=== PATIENT | female | born 1940 | race African-American/Black ===

== ENCOUNTER 2019-09-13 06:27 | Inpatient (IN) | payer OTHER ==
[~2019-09-13] VITALS: Ht 167.6 cm; Wt 66.7 kg
[~2019-09-13 06:27] MED LIST: ASPI-404 PO; ATOR20TA50 PO; CEPH250C PO; CLOP75TA28 PO; FURO1TAB33 PO; METO25TA5 PO
[2019-09-13 07:28] LABS: Basophils # (auto) 0.1 10 ^3/uL (0-0.2); Eosinophils # (auto) 0 10 ^3/uL (0-0.8); Lymphocytes # (auto) 2.6 10 ^3/uL (0.4-5.4); Red Blood Cells 4.27 10^6/uL (4.0-5.20)
[2019-09-13] MEDS ORDERED: SODIUM CHLORIDE 0.9% 1,000 ML IV ONE (07:28)
[2019-09-13 07:29] LABS: Basophils % (auto) 0.5 % (0.0-2.0); Hematocrit 35.8 % (36.0-46.0); Hemoglobin 11.3 g/dL (12.2-16.2); Lymphocytes % (auto) 23.6 % (10.0-50.0); Mean Corpuscular Hemoglobin 26.4 pg (28.0-32.0); Mean Corpuscular Hgb Conc. 31.5 g/dL (32.0-36.0); Mean Corpuscular Volume 83.9 fL (80.0-100.0); Monocytes # (auto) 0.6 10 ^3/uL (0-1.3); Monocytes % (auto) 5.6 % (0.0-12.0); Neutrophils # (auto) 7.8 10 ^3/uL (1.6-8.6); Neutrophils % (auto) 70.3 % (37.0-80.0); Nucleated Red Blood Cells % 0.1 %; Platelet Count (auto) 247 10^3/uL (140-450); Red Cell Distribution Width 16.2 % (11.8-14.3); White Blood Cell 11.1 10^3/uL (4.4-10.8)
[2019-09-13 07:43] LABS: Albumin 3.5 g/dL (3.4-5.0); BUN/Creatinine Ratio 19.1; Calcium 8.3 mg/dL (8.5-10.1); INR 1.09 (0.9-1.15); Partial Thromboplastin Time 26.3 sec (23.64-32.05); Potassium 3.3 mmol/L (3.5-5.1)
[2019-09-13 07:57] LABS: Bilirubin, Total 0.3 mg/dL (0.2-1.0); Total Protein 7.9 g/dL (6.4-8.2)
[2019-09-13] MEDS ORDERED: SPIRONOLACTONE 25 MG TAB PO ONE (08:30)
[2019-09-13] MEDS ORDERED: FUROSEMIDE 40 MG/4 ML VIAL IV ONE (08:30)
[2019-09-13] MEDS ORDERED: POTASSIUM EFFERVESENT TAB 25 MEQ PO ONE (08:45)
[2019-09-13 09:53] LABS: Urine Bacteria NONE SEEN /hpf (None Seen); Urine Blood 1+ /uL (Negative); Urine Specific Gravity 1.008 (1.001-1.035); Urine WBC 1 /hpf (0 - 5)
[2019-09-13] MEDS ORDERED: ACETAMINOPHEN 325 MG TAB PO PRN (10:30)
[2019-09-13] MEDS ORDERED: hydrALAZINE HCL 20 MG/ML VL IV PRN (10:30)
[2019-09-13] MEDS ORDERED: CLOPIDOGREL BISULFATE 75 MG TAB PO ONE (10:30)
[2019-09-13] MEDS ORDERED: NITROGLYCERIN 0.4 MG SL TAB SL PRN (10:30)
[2019-09-13] MEDS ORDERED: PROMETHAZINE HCL 25 MG/ML 1ML IV PRN (10:30)
[2019-09-13] MEDS ORDERED: POTASSIUM CHLORIDE 20 MEQ, LIDOCAINE 1% (LOCAL ANESTH.) 2 ML in SODIUM CHL 0.9% 100 ML IV ONE (10:30)
[2019-09-13] MEDS ORDERED: HYDROcodone-ACET 5/325MG TAB PO PRN (10:30)
[2019-09-13] MEDS ORDERED: METOPROLOL TARTRATE 25 MG TAB PO ONE (10:30)
[2019-09-13] MEDS ORDERED: ASPirin-EC 81 mg tab PO ONE (10:30)
[2019-09-13] MEDS ORDERED: ALBUTEROL SULF HFA 90MCG INH 200DOSE IN PRN (10:45)
[2019-09-13] MEDS: HEPARIN SODIUM (PORCINE) 5000 UNITS/ML 1ML VIAL SC SCH ×2 (14:53→22:37)
[2019-09-13 18:29] VITALS: BP 146/70
[2019-09-13 19:40] VITALS: BP 146/63
[2019-09-13 22:00] VITALS: BP 148/64
[2019-09-13] MEDS: POTASSIUM CHL 20 Meq TABLET PO SCH (22:36)
[2019-09-13] MEDS: METOPROLOL TARTRATE 25 MG TAB PO SCH (22:37)
[2019-09-14] MEDS: HEPARIN SODIUM (PORCINE) 5000 UNITS/ML 1ML VIAL SC SCH ×2 (05:32→15:38)
[2019-09-14 05:46] VITALS: BP 137/59
[2019-09-14 05:58] LABS: Basophils # (auto) 0.1 10 ^3/uL (0-0.2); Eosinophils # (auto) 0 10 ^3/uL (0-0.8); Lymphocytes % (auto) 35.8 % (10.0-50.0); Monocytes # (auto) 0.6 10 ^3/uL (0-1.3); Nucleated Red Blood Cells % 0.1 %
[2019-09-14 06:01] LABS: Basophils % (auto) 0.6 % (0.0-2.0); Hematocrit 36.5 % (36.0-46.0); Hemoglobin 11.7 g/dL (12.2-16.2); Mean Corpuscular Hemoglobin 26.6 pg (28.0-32.0); Mean Corpuscular Volume 83.1 fL (80.0-100.0); Monocytes % (auto) 7.7 % (0.0-12.0); Neutrophils # (auto) 4.7 10 ^3/uL (1.6-8.6); Neutrophils % (auto) 55.9 % (37.0-80.0); Platelet Count (auto) 243 10^3/uL (140-450); Red Blood Cells 4.39 10^6/uL (4.0-5.20); Red Cell Distribution Width 16.1 % (11.8-14.3); White Blood Cell 8.4 10^3/uL (4.4-10.8)
[2019-09-14 06:21] LABS: Albumin 3.4 g/dL (3.4-5.0); Calcium 8.6 mg/dL (8.5-10.1)
[2019-09-14 06:27] LABS: BUN/Creatinine Ratio 23.2; Bilirubin, Total 0.6 mg/dL (0.2-1.0); Total Protein 7.5 g/dL (6.4-8.2)
[2019-09-14] MEDS: FUROSEMIDE 20 MG/2 ML VIAL IV SCH ×2 (06:36→17:42)
[2019-09-14 08:44] VITALS: BP 142/52
[2019-09-14] MEDS: POTASSIUM CHL 20 Meq TABLET PO SCH (09:54)
[2019-09-14] MEDS: METOPROLOL TARTRATE 25 MG TAB PO SCH (09:56)
[2019-09-14] MEDS ORDERED: ATORVASTATIN 20 MG TAB PO SCH (10:00)
[2019-09-14] MEDS ORDERED: ASPirin-EC 81 mg tab PO SCH (10:00)
[2019-09-14] MEDS ORDERED: CLOPIDOGREL BISULFATE 75 MG TAB PO SCH ×2 (10:00)
[2019-09-14] MEDS ORDERED: AZITHROMYCIN 500MG/ 250ML 250 ML IV SCH (10:00)
[2019-09-14] MEDS ORDERED: FURO1TAB33 PO (12:55)
[2019-09-14] MEDS ORDERED: POTA-220 PO (12:55)
[2019-09-14 13:00] VITALS: BP 131/58
[2019-09-14 17:00] VITALS: BP 137/58
== END 2019-09-14 17:45 | disposition home or self-care (01) | DRG 280 ==
LOC: EDBD 06:27 → ER 06:27 → TELE 06:28 → TELE-EAST 17:38
PROVIDERS: ADMIT Internal Medicine; ATTEND Internal Medicine
DX: I21.4 Non-ST elevation (NSTEMI) myocardial infarction (principal); J96.01 Acute respiratory failure with hypoxia; J18.9 Pneumonia, unspecified organism; I50.23 Acute on chronic systolic (congestive) heart failure; I44.7 Left bundle-branch block, unspecified; E87.6 Hypokalemia; I35.0 Nonrheumatic aortic (valve) stenosis; E78.5 Hyperlipidemia, unspecified; I11.0 Hypertensive heart disease with heart failure; Z79.02 Long term (current) use of antithrombotics/antiplatelets; Z87.891 Personal history of nicotine dependence; Z79.899 Other long term (current) drug therapy; Z03.818 Encounter for observation for suspected exposure to other biological agents ruled out
CPT/HCPCS: 36415; 51702; 71045; 80053; 81001; 83735; 83880; 84443; 84484; 85025; 85610; 85730; 87070; 87804; 87880; 93005; 96361; 96365; G0378; J2001

== ENCOUNTER 2019-10-19 02:02 | Inpatient (IN) | payer OTHER ==
[~2019-10-19] VITALS: Ht 167.6 cm; Wt 64.6 kg
[~2019-10-19 02:02] MED LIST changes: -ASPI-404 PO; +ASPI-543 PO; -CEPH250C PO; +POTA-220 PO
[2019-10-19] MEDS ORDERED: HYDROcodone-ACET 5/325MG TAB PO ONE (04:00)
[2019-10-19] MEDS ORDERED: FUROSEMIDE 20 MG/2 ML VIAL IV ONE (07:00)
[2019-10-19 07:17] LABS: Eosinophils # (auto) 0 10 ^3/uL (0-0.8); Hemoglobin 10.9 g/dL (12.2-16.2); Monocytes # (auto) 0.8 10 ^3/uL (0-1.3); Neutrophils # (auto) 8.2 10 ^3/uL (1.6-8.6); Nucleated Red Blood Cells % 0.1 %; Red Blood Cells 4.16 10^6/uL (4.0-5.20)
[2019-10-19 07:18] LABS: Basophils # (auto) 0.1 10 ^3/uL (0-0.2); Basophils % (auto) 0.5 % (0.0-2.0); Hematocrit 34.7 % (36.0-46.0); Lymphocytes # (auto) 2.1 10 ^3/uL (0.4-5.4); Lymphocytes % (auto) 18.8 % (10.0-50.0); Mean Corpuscular Hemoglobin 26.1 pg (28.0-32.0); Mean Corpuscular Hgb Conc. 31.3 g/dL (32.0-36.0); Mean Corpuscular Volume 83.3 fL (80.0-100.0); Monocytes % (auto) 7.2 % (0.0-12.0); Neutrophils % (auto) 73.5 % (37.0-80.0); Platelet Count (auto) 221 10^3/uL (140-450); White Blood Cell 11.1 10^3/uL (4.4-10.8)
[2019-10-19 07:30] LABS: INR 1.13 (0.9-1.15); Partial Thromboplastin Time 29.4 sec (23.64-32.05)
[2019-10-19 07:34] LABS: Albumin 3.6 g/dL (3.4-5.0); Calcium 8.8 mg/dL (8.5-10.1); Magnesium 1.8 mg/dL (1.6-2.6); Potassium 3.4 mmol/L (3.5-5.1)
[2019-10-19 07:40] LABS: BUN/Creatinine Ratio 26.8; Bilirubin, Total 0.3 mg/dL (0.2-1.0); Total Protein 7.4 g/dL (6.4-8.2)
[2019-10-19] MEDS ORDERED: ASPirin 81 mg TAB PO ONE (08:15)
[2019-10-19 09:12] LABS: Urine Bacteria FEW /hpf (None Seen); Urine Blood Negative /uL (Negative); Urine Hyaline Cast FEW /lpf (0 - 2); Urine Specific Gravity 1.005 (1.001-1.035); Urine WBC 1 /hpf (0 - 5)
[2019-10-19] MEDS ORDERED: ONDANSETRON HCL 4 MG/2 ML VIAL IV PRN (09:15)
[2019-10-19] MEDS ORDERED: NITROGLYCERIN 0.4 MG SL TAB SL PRN (09:15)
[2019-10-19] MEDS ORDERED: POTASSIUM CHL 20 Meq TABLET PO ONE (09:15)
[2019-10-19] MEDS ORDERED: MORPHINE SULF INJ 2 MG/ML SYRINGE 1ML IV PRN ×2 (09:15)
[2019-10-19] MEDS ORDERED: ACETAMINOPHEN 500 MG TAB PO PRN (09:15)
[2019-10-19] MEDS ORDERED: HYDROcodone-ACET 5/325MG TAB PO PRN (09:15)
[2019-10-19] MEDS ORDERED: ENOXAPARIN SOD 40 MG/0.4 ML SYRINGE SC SCH (10:00)
[2019-10-19] MEDS ORDERED: IOHEXOL 350 MG/ML 100ML IJ ONE (10:07)
[2019-10-19] MEDS: FUROSEMIDE 40 MG/4 ML VIAL IV SCH (18:36)
--- NOTE | 2019-10-19 18:45 | NUR ---
Report Received report from BENCH ASSEMBLER ELECTRICALAllie.
--- NOTE | 2019-10-19 18:50 | NUR ---
Patient Arrived to Unit Patient Arrived to Unit from ER. No signs of distress at this time. Respirations even and unlabored, denies shortness of breath at this time. Patient oriented to room, safety precautions in place. Will endorse admission to NOC RN.
--- NOTE | 2019-10-19 19:30 | NUR ---
RECEIVED PATIENT FROM DAY SHIFT RN. PATIENT RESTING IN BED. NO S/S OF DISTRESS NOTED. DENIED PAIN FOR NOW. POC INSTRUCTED AND ENCOURAGED PATIENT TO CALL FOR SALES AGENT PEST CONTROL SERVICE IF NEEDED. BED IN LOWEST POSITION WITH SIDE RAILS UP X 2. CALL DUNBAR WITHIN REACH. ALARM ON. CONTINUE TO MONITOR FOR CHANGES Q1H AND PRN.
--- NOTE | 2019-10-19 20:43 | NUR ---
Called/paged Dr. CARLOS called re:PATIENT'S CRITICAL LAB TROP 05.20 . Waiting for call back. Continue care. Addendum: 10/19/19 at 2044 by Eliceo Cortez RN MESSAGE LEFT TO MD GARCIA
--- NOTE | 2019-10-19 21:05 | NUR ---
returned call Dr. GARCIA returned call, updated on patient status and reason for call, orders received AND READ BACK. WILL CARRY IT OUT. Continue care.
[2019-10-19] MEDS ORDERED: ENOXAPARIN SOD 80 MG/0.8ML SYRINGE SC SCH (22:00)
[2019-10-19] MEDS ORDERED: ATORVASTATIN 20 MG TAB PO SCH (22:00)
[2019-10-19] MEDS: ENOXAPARIN SOD 80 MG/0.8ML SYRINGE SC SCH (22:09)
[2019-10-19] MEDS: METOPROLOL TARTRATE 25 MG TAB PO SCH (22:09)
--- NOTE | 2019-10-19 22:10 | NUR ---
PATIENT'S TEMP 100.8, MEDICATED PATIENT ORDERED. CONTINUE TO MONITOR.
[2019-10-19 22:12] VITALS: BP 133/53
--- NOTE | 2019-10-19 22:54 | NUR ---
MD Called/paged Dr. GARCIA called re: PATIENT HAS FEVER 100.8, WITH COUGH, AND PATIENT'S CTA RESULT "diffuse nodular and ground glass opacity towards the lungs with moderate bilateral pleural effusion" PER PROTOCOL. AND MD CARLOS MENTIONED IT IN HIS NOTES. MD GARCIA WILL NOT CHANGE ANY ORDER FOR NOW. WILL PASS IT TO DAY SHIFT RN TO DAY MD. Continue care.
[2019-10-20 02:00] VITALS: BP 128/55
--- NOTE | 2019-10-20 02:52 | NUR ---
CRITICAL LAB TROP 1.72, AWARE OF CRITICAL TROP 1.29 AT THE BEGINNING OF THE SHIFT, AND NEW ORDERS RECEIVED. WILL PASS IT TO DAY SHIFT RN TO MD. CONTINUE TO MONITOR.
[2019-10-20 05:00] VITALS: BP 129/51
--- NOTE | 2019-10-20 05:11 | NUR ---
PATIENT SLEEPING. NO S/S OF DISTRESS NOTED. CONTINUE CARE.
[2019-10-20 05:21] LABS: Basophils # (auto) 0.1 10 ^3/uL (0-0.2); Basophils % (auto) 0.5 % (0.0-2.0); Eosinophils # (auto) 0 10 ^3/uL (0-0.8); Hematocrit 34.7 % (36.0-46.0); Hemoglobin 10.9 g/dL (12.2-16.2); Lymphocytes % (auto) 25.2 % (10.0-50.0); Mean Corpuscular Hemoglobin 26.1 pg (28.0-32.0); Mean Corpuscular Hgb Conc. 31.6 g/dL (32.0-36.0); Mean Corpuscular Volume 82.8 fL (80.0-100.0); Monocytes # (auto) 0.6 10 ^3/uL (0-1.3); Monocytes % (auto) 5.4 % (0.0-12.0); Neutrophils # (auto) 8.2 10 ^3/uL (1.6-8.6); Neutrophils % (auto) 68.9 % (37.0-80.0); Platelet Count (auto) 222 10^3/uL (140-450); Red Blood Cells 4.19 10^6/uL (4.0-5.20); Red Cell Distribution Width 15.5 % (11.8-14.3); White Blood Cell 11.9 10^3/uL (4.4-10.8)
[2019-10-20 05:39] LABS: Potassium 3.3 mmol/L (3.5-5.1)
[2019-10-20 05:45] LABS: Albumin 3.2 g/dL (3.4-5.0); Bilirubin, Total 0.6 mg/dL (0.2-1.0); Calcium 8.6 mg/dL (8.5-10.1); Magnesium 1.8 mg/dL (1.6-2.6); Total Protein 6.7 g/dL (6.4-8.2)
[2019-10-20] MEDS: FUROSEMIDE 40 MG/4 ML VIAL IV SCH (06:11)
[2019-10-20 07:30] VITALS: BP 128/48
--- NOTE | 2019-10-20 07:30 | NUR ---
Opening Note Assumed patient care from NOC RN. Patient currently resting in bed with eyes closed, laying on left side. Respirations are even and unlabored on 3L nasal cannula, no signs of distress at this time. Safety precautions are in place, will continue to monitor.
[2019-10-20 08:51] VITALS: BP 128/48
[2019-10-20] MEDS ORDERED: ATORVASTATIN 20 MG TAB PO SCH (10:00)
[2019-10-20] MEDS ORDERED: CLOPIDOGREL BISULFATE 75 MG TAB PO SCH (10:00)
[2019-10-20] MEDS ORDERED: ASPirin-EC 81 mg tab PO SCH (10:00)
[2019-10-20] MEDS ORDERED: FUROSEMIDE 20 MG TAB PO SCH (10:00)
[2019-10-20] MEDS ORDERED: POTASSIUM CHL 20 Meq TABLET PO SCH (10:00)
--- NOTE | 2019-10-20 10:00 | NUR ---
Patient Rounds Patient currently sitting up in bed, no signs of distress at this time. Respirations even and unlabored on room air, denies shortness of breath at this time. Patient is AOx4. Safety precautions in place, will continue to monitor.
[2019-10-20] MEDS: ENOXAPARIN SOD 80 MG/0.8ML SYRINGE SC SCH (10:18)
[2019-10-20] MEDS: METOPROLOL TARTRATE 25 MG TAB PO SCH (10:19)
--- NOTE | 2019-10-20 10:29 | NUR ---
Ambulated Patient ambulated independently around unit with physical therapy. Addendum: 10/20/19 at 1030 by DEMARIO LILLY RN RN Patient tolerated well, no signs of distress
--- NOTE | 2019-10-20 11:00 | NUR ---
at Bedside Dr. Pena at bedside discussing plan of care with patient.
[2019-10-20 12:42] VITALS: BP 125/42
[2019-10-20 15:26] VITALS: BP 125/42
--- NOTE | 2019-10-20 15:36 | NUR ---
Assessment Patient is an 79-year-old female. Assessment was completed with patient daughter Staci Ph:[phone]. Per Staci prior to admission patient lived home with her and functioned independently. Per Staci patient does not have any medical equipment now. Per Staci patient can care for her own ADLs. Per Staci patient will return home to her prior living arrangements post discharge and she will transport patient home. Advised Staci there is a social service consult for home health safety evaluation. Informed Staci clinical information will be faxed to contracted home health agency with health plan. Informed Staci she has the right to participate in all discharge planning. Staci verbalized understanding and agreed to discharge plan. Faxed clinical information to [facility] and [facility] [facility]. Per Anjelica with [employer] [facility] [phone] patient has been accepted and will be seen within 24-48hrs upon d/c day. Informed weight yardage checkerDEUCE Aquino. Addendum: 10/20/19 at 1537 by JO RASHID Amended: Links added.
--- NOTE | 2019-10-20 16:58 | NUR ---
Discharge Discharge instructions given as ordered. Encourage to follow up with PMD as instructed. All questions and concerns addressed. Patient verbalized understanding. Medication reconciliation form completed and copy given to patient. Home medications held in Pharmacy returned to patient. IV removed with catheter intact, pressure dressing applied. Telemetry unit returned to ICU. Patient taken to vehicle via wheelchair with all personal belongings, accompanied by staff. No distress noted at time of departure.
== END 2019-10-20 16:58 | disposition home health service (06) | DRG 282 ==
LOC: EDBD 02:02 → ER 02:02 → TELE 02:03 → TELE-WESTW 18:50
PROVIDERS: ADMIT Internal Medicine; ATTEND Internal Medicine
DX: I11.0 Hypertensive heart disease with heart failure (principal); I21.4 Non-ST elevation (NSTEMI) myocardial infarction; I50.23 Acute on chronic systolic (congestive) heart failure; I42.9 Cardiomyopathy, unspecified; I35.0 Nonrheumatic aortic (valve) stenosis; E78.5 Hyperlipidemia, unspecified; I25.10 Atherosclerotic heart disease of native coronary artery without angina pectoris; Z79.82 Long term (current) use of aspirin; Z79.899 Other long term (current) drug therapy; Z87.891 Personal history of nicotine dependence; Z95.2 Presence of prosthetic heart valve; Z03.818 Encounter for observation for suspected exposure to other biological agents ruled out
CPT/HCPCS: 36415; 71045; 71275; 80053; 81001; 83735; 83880; 84484; 85025; 85379; 85610; 85730; 93005; 93306; 96372; 96374; 96376; G0378

== ENCOUNTER 2021-01-04 12:27 | Inpatient (IN) | payer OTHER, MEDICAID ==
[2021-01-04] VITALS (13 sets, daily range): BP systolic 111–180; BP diastolic 43–115
[~2021-01-04] VITALS: Ht 154.9 cm; Wt 58.8 kg
[2021-01-04 14:02] LABS: Albumin 3.9 g/dL (3.4-5.0); Calcium 9.1 mg/dL (8.5-10.1); Magnesium 1.9 mg/dL (1.6-2.6); Potassium 3.2 mmol/L (3.5-5.1)
[2021-01-04 14:10] LABS: BUN/Creatinine Ratio 9.2; Bilirubin, Total 0.8 mg/dL (0.2-1.0)
[2021-01-04 15:02] LABS: Basophils # (auto) 0 10 ^3/uL (0-0.2); Basophils % (auto) 0.2 % (0.0-2.0); Eosinophils # (auto) 0 10 ^3/uL (0-0.8); Hematocrit 29.9 % (36.0-46.0); Hemoglobin 9.8 g/dL (12.2-16.2); Lymphocytes # (auto) 1.3 10 ^3/uL (0.4-5.4); Mean Corpuscular Hemoglobin 27.2 pg (28.0-32.0); Mean Corpuscular Hgb Conc. 32.8 g/dL (32.0-36.0); Mean Corpuscular Volume 83.1 fL (80.0-100.0); Monocytes # (auto) 0.5 10 ^3/uL (0-1.3); Monocytes % (auto) 4.3 % (0.0-12.0); Neutrophils # (auto) 9.7 10 ^3/uL (1.6-8.6); Neutrophils % (auto) 84.5 % (37.0-80.0); Nucleated Red Blood Cells % 0.2 %; Red Cell Distribution Width 16.4 % (11.8-14.3); White Blood Cell 11.5 10^3/uL (4.4-10.8)
[2021-01-04] MEDS ORDERED: ONDANSETRON HCL 4 MG/2 ML VIAL IV ONE ×2 (15:45→19:45)
[2021-01-04] MEDS: ENOXAPARIN SOD 60 MG/0.6 ML SYRINGE SC ONE (15:45)
[2021-01-04] MEDS ORDERED: MORPHINE SULFATE 4 MG/ML SYR/VIAL IV ONE (15:45)
[2021-01-04] MEDS ORDERED: cefTRIAXone 1GM/50ML D5W 50 ML IV ONE (16:15)
[2021-01-04] MEDS ORDERED: metroNIDAZOLE 500MG/100ML 100 ML IV ONE ×2 (16:15→19:45)
[2021-01-04] MEDS ORDERED: IOHEXOL 300 MG/ML 100ML BOTTLE IJ ONE (16:35)
[2021-01-04 16:58] LABS: Lactic Acid w/Reflex 6.5 mmol/L (0.4-2.0)
[2021-01-04] MEDS ORDERED: NOREPINEPHRINE 8 MG/250ML KIT 250 ML IV ONE (18:01)
[2021-01-04 18:15] LABS: INR 1.42 (0.9-1.15)
[2021-01-04] MEDS ORDERED: fentaNYL CITRATE 100 MCG/2 ML VL ONE (18:36)
[2021-01-04] MEDS ORDERED: HYDROmorphone HCL 2 MG/ML VL ONE ×2 (18:36→19:14)
[2021-01-04] MEDS ORDERED: MIDAZOLAM HCL 2MG/2ML 2ml VIAL (1mg/ml) ONE (18:37)
[2021-01-04] MEDS ORDERED: fentaNYL CITRATE 5 ML ONE (18:39)
[2021-01-04] MEDS ORDERED: ROCURONIUM 10MG/ML 10ML VIAL IV ONE (18:43)
[2021-01-04] MEDS ORDERED: MORPHINE SULFATE INJECTION 2 MG/ML SYRG IV PRN (19:00)
[2021-01-04] MEDS ORDERED: NITROGLYCERIN 0.4 MG SL TAB SL PRN (19:00)
[2021-01-04] MEDS ORDERED: MIDAZOLAM DRIP 50 mg/50mL 50 ML IV SCH (19:00)
[2021-01-04] MEDS ORDERED: POVIDONE IODINE 10 % TOPICAL OINT 30GM TOP ONE (19:35)
[2021-01-04] MEDS ORDERED: D5W/SOD CHL 0.45%/KCL 40MEQ 1,000 ML IV ONE (19:45)
[2021-01-04] MEDS: MIDAZOLAM DRIP 50 mg/50mL 50 ML IV SCH (19:45)
[2021-01-04] MEDS ORDERED: HYDROmorphone HCL 2 MG/ML VL IV ONE (19:45)
[2021-01-04] MEDS ORDERED: PANTOPRAZOLE 40 MG/10 ML VIAL INJ IV ONE (19:45)
[2021-01-04] MEDS ORDERED: ceFAZolin 1GM/50ML 50 ML IV ONE (19:45)
[2021-01-04] MEDS: fentaNYL Drip 2500mCg/250mlNS 250 ML IV SCH (21:30)
[2021-01-04 21:58] LABS: Basophils # (auto) 0 10 ^3/uL (0-0.2); Basophils % (auto) 0.2 % (0.0-2.0); Eosinophils # (auto) 0 10 ^3/uL (0-0.8); Hematocrit 27.5 % (36.0-46.0); Lymphocytes # (auto) 2.9 10 ^3/uL (0.4-5.4); Lymphocytes % (auto) 21.1 % (10.0-50.0); Mean Corpuscular Hemoglobin 27.6 pg (28.0-32.0); Mean Corpuscular Hgb Conc. 32.7 g/dL (32.0-36.0); Mean Corpuscular Volume 84.3 fL (80.0-100.0); Monocytes # (auto) 0.6 10 ^3/uL (0-1.3); Monocytes % (auto) 4.1 % (0.0-12.0); Neutrophils # (auto) 10.5 10 ^3/uL (1.6-8.6); Neutrophils % (auto) 74.6 % (37.0-80.0); Red Blood Cells 3.26 10^6/uL (4.0-5.20)
[2021-01-04 22:14] LABS: Alanine Aminotransferase 19 U/L (13-56); Albumin 2.9 g/dL (3.4-5.0); Anion Gap 8 (5-15); Aspartate Aminotransferase 33 U/L (15-37); BUN/Creatinine Ratio 11.5; Blood Urea Nitrogen 6 mg/dL (7-18); Calcium 7.6 mg/dL (8.5-10.1); Carbon Dioxide 25 mmol/L (21-32); Chloride 108 mmol/L (98-107); GFR African American 145 mL/min; GFR Non-African American 120 mL/min; Glucose 204 mg/dL (74-106); Sodium 141 mmol/L (136-145)
[2021-01-04 22:17] LABS: Alkaline Phosphatase 63 U/L (45-117); Bilirubin, Total 0.4 mg/dL (0.2-1.0); Total Protein 6.6 g/dL (6.4-8.2)
[2021-01-04 22:26] LABS: Potassium 2.9 mmol/L (3.5-5.1)
[2021-01-05] VITALS (100 sets, daily range): BP systolic 103–173; BP diastolic 39–89
[2021-01-05] MEDS: MAGNESIUM SULFATE 1GM/100ML 100 ML IV SCH ×2 (00:15→01:15)
[2021-01-05] MEDS: POTASSIUM CHL 20MEQ/100ML 100 ML IV SCH ×2 (02:15→04:00)
[2021-01-05] MEDS: PIPERACILLIN-TAZOB 3.375GM 100 ML IV SCH ×4 (04:00→17:46)
[2021-01-05 05:00] LABS: INR 1.16 (0.9-1.15); Partial Thromboplastin Time 29.4 sec (23.6-33.0)
[2021-01-05 05:08] LABS: Potassium 4.5 mmol/L (3.5-5.1)
[2021-01-05 05:12] LABS: Albumin 2.8 g/dL (3.4-5.0); BUN/Creatinine Ratio 10.6; Calcium 7.8 mg/dL (8.5-10.1)
[2021-01-05 05:14] LABS: Bilirubin, Total 0.2 mg/dL (0.2-1.0); Total Protein 6.5 g/dL (6.4-8.2)
[2021-01-05 06:58] LABS: Basophils # (auto) 0 10 ^3/uL (0-0.2); Basophils % (auto) 0.5 % (0.0-2.0); Eosinophils # (auto) 0 10 ^3/uL (0-0.8); Hematocrit 27.5 % (36.0-46.0); Hemoglobin 8.9 g/dL (12.2-16.2); Lymphocytes # (auto) 2.5 10 ^3/uL (0.4-5.4); Lymphocytes % (auto) 25.6 % (10.0-50.0); Mean Corpuscular Hemoglobin 27.2 pg (28.0-32.0); Mean Corpuscular Hgb Conc. 32.5 g/dL (32.0-36.0); Mean Corpuscular Volume 83.7 fL (80.0-100.0); Monocytes # (auto) 0.7 10 ^3/uL (0-1.3); Neutrophils # (auto) 6.4 10 ^3/uL (1.6-8.6); Neutrophils % (auto) 66.9 % (37.0-80.0); Red Blood Cells 3.29 10^6/uL (4.0-5.20); Red Cell Distribution Width 16.6 % (11.8-14.3); White Blood Cell 9.6 10^3/uL (4.4-10.8)
[2021-01-05] MEDS: MIDAZOLAM DRIP 50 mg/50mL 50 ML IV SCH ×2 (08:30→17:44)
[2021-01-05] MEDS ORDERED: OPTISON 3ml Vial for INJ IV ONE (09:36)
[2021-01-05] MEDS: METOPROLOL TARTRATE 1MG/1ML-5ML VIAL IV PRN (17:12)
[2021-01-05] MEDS: fentaNYL Drip 2500mCg/250mlNS 250 ML IV SCH (19:00)
[2021-01-06] VITALS (42 sets, daily range): BP systolic 90–176; BP diastolic 37–70
[2021-01-06] MEDS: PIPERACILLIN-TAZOB 3.375GM 100 ML IV SCH ×4 (00:09→23:53)
[2021-01-06 03:48] LABS: Urine Amorphous Crystal FEW /hpf (None Seen); Urine Bacteria FEW /hpf (None Seen); Urine Blood 2+ /uL (Negative); Urine Specific Gravity 1.015 (1.001-1.035); Urine WBC 14 /hpf (0 - 5)
[2021-01-06] MEDS: MIDAZOLAM DRIP 50 mg/50mL 50 ML IV SCH (05:03)
[2021-01-06] MEDS: D5W/SOD CHL 0.45% 1,000 ML IV SCH ×2 (11:33→21:56)
[2021-01-06 12:00] LABS: Basophils # (auto) 0.1 10 ^3/uL (0-0.2); Basophils % (auto) 0.8 % (0.0-2.0); Eosinophils # (auto) 0 10 ^3/uL (0-0.8); Hematocrit 30.4 % (36.0-46.0); Lymphocytes # (auto) 2.6 10 ^3/uL (0.4-5.4); Lymphocytes % (auto) 20.7 % (10.0-50.0); Mean Corpuscular Hemoglobin 27.7 pg (28.0-32.0); Mean Corpuscular Hgb Conc. 32.8 g/dL (32.0-36.0); Mean Corpuscular Volume 84.3 fL (80.0-100.0); Monocytes # (auto) 0.8 10 ^3/uL (0-1.3); Monocytes % (auto) 6.4 % (0.0-12.0); Neutrophils % (auto) 72.1 % (37.0-80.0); Nucleated Red Blood Cells % 0.1 %; Red Blood Cells 3.61 10^6/uL (4.0-5.20); Red Cell Distribution Width 16.3 % (11.8-14.3); White Blood Cell 12.5 10^3/uL (4.4-10.8)
[2021-01-06 12:27] LABS: Albumin 2.5 g/dL (3.4-5.0); Calcium 8.5 mg/dL (8.5-10.1); Potassium 4.3 mmol/L (3.5-5.1)
[2021-01-06] MEDS: PANTOPRAZOLE 40 MG/10 ML VIAL INJ IV SCH (12:30)
[2021-01-06 12:31] LABS: BUN/Creatinine Ratio 18.2; Bilirubin, Total 0.5 mg/dL (0.2-1.0); Total Protein 6.6 g/dL (6.4-8.2)
[2021-01-06] MEDS ORDERED: LIDOCAINE 2%HCL (LOCAL ANESTH.) INJ 20ML MDV ONE (14:37)
[2021-01-06] MEDS ORDERED: IOHEXOL 350 MG/ML 100ML IJ ONE ×2 (14:37→15:21)
[2021-01-06] MEDS ORDERED: ANGIOMAX 250 MG VIAL IV ONE ×2 (15:26→16:37)
[2021-01-06] MEDS ORDERED: SODIUM CHL 0.9% 50 ML ONE ×2 (15:26→16:38)
[2021-01-06] MEDS ORDERED: IODIXANOL 320MG/ML 100ML BTL IV ONE (16:11)
[2021-01-06] MEDS ORDERED: VERAPAMIL 2.5MG/ML INJ 2ML VIAL IV ONE (17:01)
[2021-01-06] MEDS: fentaNYL Drip 2500mCg/250mlNS 250 ML IV SCH (19:00)
[2021-01-07] VITALS (89 sets, daily range): BP systolic 93–181; BP diastolic 35–70
[2021-01-07] MEDS: MIDAZOLAM DRIP 50 mg/50mL 50 ML IV SCH ×2 (02:47→05:52)
[2021-01-07 03:47] LABS: Basophils # (auto) 0 10 ^3/uL (0-0.2); Basophils % (auto) 0.2 % (0.0-2.0); Eosinophils # (auto) 0 10 ^3/uL (0-0.8); Hematocrit 26.2 % (36.0-46.0); Hemoglobin 8.5 g/dL (12.2-16.2); Lymphocytes # (auto) 1.4 10 ^3/uL (0.4-5.4); Lymphocytes % (auto) 16.5 % (10.0-50.0); Mean Corpuscular Hemoglobin 27.3 pg (28.0-32.0); Mean Corpuscular Hgb Conc. 32.6 g/dL (32.0-36.0); Mean Corpuscular Volume 83.8 fL (80.0-100.0); Monocytes # (auto) 0.6 10 ^3/uL (0-1.3); Monocytes % (auto) 6.8 % (0.0-12.0); Neutrophils # (auto) 6.5 10 ^3/uL (1.6-8.6); Neutrophils % (auto) 76.5 % (37.0-80.0); Red Blood Cells 3.12 10^6/uL (4.0-5.20); Red Cell Distribution Width 16.2 % (11.8-14.3); White Blood Cell 8.4 10^3/uL (4.4-10.8)
[2021-01-07 04:06] LABS: Albumin 2.1 g/dL (3.4-5.0); Calcium 7.9 mg/dL (8.5-10.1); Potassium 3.7 mmol/L (3.5-5.1)
[2021-01-07 04:08] LABS: BUN/Creatinine Ratio 19.5
[2021-01-07 04:10] LABS: Bilirubin, Total 0.4 mg/dL (0.2-1.0); Total Protein 5.6 g/dL (6.4-8.2)
[2021-01-07] MEDS: D5W/SOD CHL 0.45%/KCL 20MEQ 1,000 ML IV SCH ×4 (04:54→17:48)
[2021-01-07] MEDS: PIPERACILLIN-TAZOB 3.375GM 100 ML IV SCH ×3 (05:52→17:47)
[2021-01-07] MEDS: fentaNYL Drip 2500mCg/250mlNS 250 ML IV SCH (11:32)
[2021-01-07] MEDS: PANTOPRAZOLE 40 MG/10 ML VIAL INJ IV SCH (11:41)
[2021-01-07] MEDS ORDERED: FUROSEMIDE 20 MG/2 ML VIAL IV ONE (12:00)
[2021-01-07] MEDS ORDERED: FUROSEMIDE 20 MG/2 ML VIAL ONE (12:17)
[2021-01-07] MEDS: METOPROLOL TARTRATE 1MG/1ML-5ML VIAL IV PRN (14:16)
[2021-01-07] MEDS ORDERED: MORPHINE SULFATE INJECTION 2 MG/ML SYRG IV PRN (16:15)
[2021-01-07] MEDS ORDERED: ONDANSETRON HCL 4 MG/2 ML VIAL IV PRN (16:15)
[2021-01-07] MEDS ORDERED: METOPROLOL TARTRATE 1MG/1ML-5ML VIAL IV PRN (17:30)
[2021-01-07] MEDS ORDERED: METOPROLOL TARTRATE 1MG/1ML-5ML VIAL IV ONE (17:34)
[2021-01-08] VITALS (31 sets, daily range): BP systolic 106–159; BP diastolic 32–68
[2021-01-08] MEDS: PIPERACILLIN-TAZOB 3.375GM 100 ML IV SCH ×4 (01:08→17:07)
[2021-01-08 04:43] LABS: Basophils # (auto) 0 10 ^3/uL (0-0.2); Basophils % (auto) 0.2 % (0.0-2.0); Eosinophils # (auto) 0 10 ^3/uL (0-0.8); White Blood Cell 9.5 10^3/uL (4.4-10.8)
[2021-01-08 04:44] LABS: Hematocrit 24.5 % (36.0-46.0); Lymphocytes # (auto) 1.2 10 ^3/uL (0.4-5.4); Lymphocytes % (auto) 12.1 % (10.0-50.0); Mean Corpuscular Hemoglobin 27.4 pg (28.0-32.0); Mean Corpuscular Hgb Conc. 32.8 g/dL (32.0-36.0); Mean Corpuscular Volume 83.6 fL (80.0-100.0); Monocytes # (auto) 0.8 10 ^3/uL (0-1.3); Monocytes % (auto) 8.2 % (0.0-12.0); Neutrophils # (auto) 7.6 10 ^3/uL (1.6-8.6); Neutrophils % (auto) 79.5 % (37.0-80.0); Red Blood Cells 2.92 10^6/uL (4.0-5.20); Red Cell Distribution Width 16.2 % (11.8-14.3)
[2021-01-08 04:57] LABS: Albumin 1.8 g/dL (3.4-5.0); BUN/Creatinine Ratio 21.1; Calcium 7.7 mg/dL (8.5-10.1); Potassium 3.6 mmol/L (3.5-5.1)
[2021-01-08 05:00] LABS: Bilirubin, Total 0.5 mg/dL (0.2-1.0); Total Protein 5.3 g/dL (6.4-8.2)
[2021-01-08] MEDS: fentaNYL Drip 2500mCg/250mlNS 250 ML IV SCH (09:33)
[2021-01-08] MEDS: MIDAZOLAM DRIP 50 mg/50mL 50 ML IV SCH (09:57)
[2021-01-08] MEDS ORDERED: METOPROLOL TARTRATE 25 MG TAB PO ONE (12:15)
[2021-01-08] MEDS: MAGNESIUM SULFATE 1GM/100ML 100 ML IV SCH ×2 (12:29→13:39)
[2021-01-08] MEDS: PANTOPRAZOLE 40 MG/10 ML VIAL INJ IV SCH (12:29)
[2021-01-08] MEDS: ASPirin 81 mg TAB NG SCH (12:29)
[2021-01-08] MEDS: D5W/SOD CHL 0.45%/KCL 20MEQ 1,000 ML IV SCH (12:37)
[2021-01-08] MEDS: METOPROLOL TARTRATE 25 MG TAB PO SCH (22:00)
[2021-01-09] MEDS: PIPERACILLIN-TAZOB 3.375GM 100 ML IV SCH ×4 (00:07→18:00)
[2021-01-09 05:00] VITALS: BP 126/63
[2021-01-09 06:01] LABS: Basophils # (auto) 0 10 ^3/uL (0-0.2); Basophils % (auto) 0.2 % (0.0-2.0); Eosinophils # (auto) 0 10 ^3/uL (0-0.8); Monocytes # (auto) 0.5 10 ^3/uL (0-1.3); White Blood Cell 6.8 10^3/uL (4.4-10.8)
[2021-01-09 06:13] LABS: Hemoglobin 7.1 g/dL (12.2-16.2); Lymphocytes # (auto) 0.9 10 ^3/uL (0.4-5.4); Lymphocytes % (auto) 13.4 % (10.0-50.0); Mean Corpuscular Hgb Conc. 33.6 g/dL (32.0-36.0); Mean Corpuscular Volume 83.2 fL (80.0-100.0); Monocytes % (auto) 7.4 % (0.0-12.0); Neutrophils # (auto) 5.4 10 ^3/uL (1.6-8.6); Red Blood Cells 2.53 10^6/uL (4.0-5.20); Red Cell Distribution Width 15.5 % (11.8-14.3)
[2021-01-09 06:29] LABS: Potassium 3.2 mmol/L (3.5-5.1)
[2021-01-09 06:38] LABS: Albumin 2.1 g/dL (3.4-5.0); BUN/Creatinine Ratio 15.9; Bilirubin, Total 0.6 mg/dL (0.2-1.0); Total Protein 5.4 g/dL (6.4-8.2)
[2021-01-09 09:07] VITALS: BP 119/64
[2021-01-09] MEDS: ASPirin 81 mg TAB NG SCH (10:00)
[2021-01-09] MEDS: METOPROLOL TARTRATE 25 MG TAB PO SCH ×2 (12:12→22:13)
[2021-01-09] MEDS: PANTOPRAZOLE 40 MG/10 ML VIAL INJ IV SCH (12:13)
[2021-01-09 13:00] VITALS: BP 117/54
[2021-01-09 17:59] VITALS: BP 135/56
[2021-01-09 22:00] VITALS: BP 137/64
[2021-01-10] MEDS: PIPERACILLIN-TAZOB 3.375GM 100 ML IV SCH ×4 (00:48→21:39)
[2021-01-10] MEDS: D5W/SOD CHL 0.45%/KCL 20MEQ 1,000 ML IV SCH (01:00)
[2021-01-10 05:00] VITALS: BP 123/55
[2021-01-10 08:44] VITALS: BP 160/67
[2021-01-10] MEDS: PANTOPRAZOLE 40 MG/10 ML VIAL INJ IV SCH (08:46)
[2021-01-10] MEDS: APIXABAN 2.5 MG TAB PO SCH ×2 (08:46→21:39)
[2021-01-10] MEDS: METOPROLOL TARTRATE 25 MG TAB PO SCH ×2 (08:48→21:39)
[2021-01-10 12:34] VITALS: BP 131/65
[2021-01-10 17:40] VITALS: BP 144/54
[2021-01-10 22:00] VITALS: BP 123/51
[2021-01-11 05:00] VITALS: BP 128/46
[2021-01-11] MEDS: PIPERACILLIN-TAZOB 3.375GM 100 ML IV SCH ×2 (05:59→14:41)
[2021-01-11 09:00] VITALS: BP 157/72
[2021-01-11] MEDS: PANTOPRAZOLE 40 MG/10 ML VIAL INJ IV SCH (09:29)
[2021-01-11] MEDS: APIXABAN 2.5 MG TAB PO SCH (09:30)
[2021-01-11] MEDS: METOPROLOL TARTRATE 25 MG TAB PO SCH (09:32)
[2021-01-11] MEDS ORDERED: APIX2.5T PO (12:51)
[2021-01-11] MEDS ORDERED: ACET325T10 PO (12:56)
[2021-01-11 13:00] VITALS: BP 158/67
[2021-01-11 16:09] VITALS: BP 136/65
[2021-01-11 17:00] VITALS: BP 150/79
== END 2021-01-11 18:24 | disposition home health service (06) | DRG 329 ==
LOC: EDBD 12:27 → ER 12:27 → TELE 18:54 → ICU WEST 21:08 → TELE-WESTW 01-08 21:58
PROVIDERS: ADMIT Nurse Practitioner Acute Care; ATTEND Internal Medicine
PROC: 0D9670Z Drainage of Stomach with Drainage Device, Via Natural or Artificial Opening (ICD-10-PCS; 2021-01-04)
PROC: 5A1945Z Respiratory Ventilation, 24-96 Consecutive Hours (ICD-10-PCS; 2021-01-04)
PROC: 0BH17EZ Insertion of Endotracheal Airway into Trachea, Via Natural or Artificial Opening (ICD-10-PCS; 2021-01-04)
PROC: 0DB80ZZ Excision of Small Intestine, Open Approach (ICD-10-PCS; principal; 2021-01-04 18:33)
PROC: 02HV33Z Insertion of Infusion Device into Superior Vena Cava, Percutaneous Approach (ICD-10-PCS; 2021-01-05)
PROC: 04753DZ Dilation of Superior Mesenteric Artery with Intraluminal Device, Percutaneous Approach (ICD-10-PCS; 2021-01-06)
PROC: B41F1ZZ Fluoroscopy of Right Lower Extremity Arteries using Low Osmolar Contrast (ICD-10-PCS; 2021-01-06)
PROC: B4141ZZ Fluoroscopy of Superior Mesenteric Artery using Low Osmolar Contrast (ICD-10-PCS; 2021-01-06)
DX: K55.059 Acute (reversible) ischemia of intestine, part and extent unspecified (principal); A41.9 Sepsis, unspecified organism; I50.21 Acute systolic (congestive) heart failure; J96.00 Acute respiratory failure, unspecified whether with hypoxia or hypercapnia; I42.9 Cardiomyopathy, unspecified; J98.11 Atelectasis; I42.8 Other cardiomyopathies; K55.9 Vascular disorder of intestine, unspecified; I48.0 Paroxysmal atrial fibrillation; L80 Vitiligo; Z20.822 Contact with and (suspected) exposure to COVID-19; E78.5 Hyperlipidemia, unspecified; I25.10 Atherosclerotic heart disease of native coronary artery without angina pectoris; I11.0 Hypertensive heart disease with heart failure; Z79.01 Long term (current) use of anticoagulants; Z88.8 Allergy status to other drugs, medicaments and biological substances; Z98.51 Tubal ligation status
CPT/HCPCS: 36415; 36600; 37236; 71045; 74176; 74177; 75625; 76000; 76942; 80053; 81001; 82150; 82805; 83605; 83690; 83735; 84484; 85025; 85610; 85730; 86850; 86900; 86901; 87040; 87070; 87081; 87205; 87426; 93005; 93306; 94002; 94003; 96365; 96367; 96375; 99152; 99153; C1876; C1887; C9113; G0378; J0690; J0696; J2250; J2405; J2543; J3480; J3490; Q9956; Q9967

== ENCOUNTER → 2024-02-20 | Outpatient (CLI) | payer MEDICAID ==
[~2024-02-20] MED LIST changes: +ACET-1882 PO; +APIX2.5T PO; -ASPI-543 PO; -CLOP75TA28 PO
[2024-02-20 13:34] LABS: Basophils # (auto) 0 10 ^3/uL (0-0.2); Basophils % (auto) 0.5 % (0.0-2.0); Eosinophils # (auto) 0 10 ^3/uL (0-0.8); Hemoglobin 12.8 g/dL (12.2-16.2); Lymphocytes # (auto) 3.4 10 ^3/uL (0.4-5.4); Lymphocytes % (auto) 48.7 % (10.0-50.0); Mean Corpuscular Hemoglobin 27.3 pg (28.0-32.0); Mean Corpuscular Hgb Conc. 32.7 g/dL (32.0-36.0); Mean Corpuscular Volume 83.3 fL (80.0-100.0); Monocytes # (auto) 0.5 10 ^3/uL (0-1.3); Monocytes % (auto) 7.1 % (0.0-12.0); Neutrophils % (auto) 43.7 % (37.0-80.0); Nucleated Red Blood Cells % 0.1 %; Platelet Count (auto) 211 10^3/uL (140-450); Red Blood Cells 4.68 10^6/uL (4.0-5.20); Red Cell Distribution Width 16.5 % (11.8-14.3); White Blood Cell 6.9 10^3/uL (4.4-10.8)
[2024-02-20 13:56] LABS: Albumin 4.2 g/dL (3.2-4.8); Alkaline Phosphatase 100 U/L (46-116); Anion Gap 5 (5-15); Aspartate Aminotransferase 14 U/L (13-40); BUN/Creatinine Ratio 13.7 (10.0-20.0); Bilirubin, Total 0.4 mg/dL (0.2-1.0); Blood Urea Nitrogen 10 mg/dL (9-23); Calcium 9.6 mg/dL (8.7-10.4); Carbon Dioxide 30 mmol/L (20-31); Chloride 109 mmol/L (98-107); Glucose 93 mg/dL (74-106); Potassium 3.6 mmol/L (3.5-5.1); Sodium 144 mmol/L (136-145); Total Protein 7.6 g/dL (5.7-8.2)
[2024-02-20 14:03] LABS: Alanine Aminotransferase 9 U/L (7-40)
[2024-02-20 14:27] LABS: Urine Bacteria FEW /hpf (None Seen); Urine Blood Negative /uL (Negative); Urine Clarity Turbid (Clear); Urine Color Light-Yellow (Yellow); Urine Mucus FEW (None Seen); Urine Protein, UAD Negative (Negative); Urine Specific Gravity 1.018 (1.001-1.035); Urine Urobilinogen Normal (Negative); Urine WBC 4 /hpf (0 - 5); Urine pH 5.5 (5.0-9.0)
[2024-02-20 14:41] LABS: Triglycerides 84 mg/dL (< 150)
[2024-02-20 14:42] LABS: CRP High Sensitivity 0.54 mg/dL (<1.0); LDL Cholesterol 85 mg/dL (< 100)
[2024-02-20 14:43] LABS: Cholesterol 166 mg/dL (< 200); HDL Cholesterol 64 mg/dL (40-59)
== END | disposition home or self-care (01) ==
LOC: LAB 13:10
PROVIDERS: ATTEND Internal Medicine
DX: E78.5 Hyperlipidemia, unspecified (principal); I10 Essential (primary) hypertension
CPT/HCPCS: 36415; 80053; 80061; 81001; 83036; 85025; 86141

== ENCOUNTER → 2024-03-02 | Outpatient (CLI) | payer MEDICAID ==
--- NOTE | 2024-03-02 15:31 | DVHSR ---
APPROVED REPORT EXAM: Two-dimensional and M-mode echocardiogram with Doppler and color Doppler. INDICATION Cardiomyopathy RISK FACTORS Height: 65, Weight: 178 DIMENSIONS LVDd5.1 (3.8-5.7cm)LA (2D)4.4 (1.9-4.0cm)Aortic Root3.4 (2.0-3.7cm) LVDs3.2 (2.5-4.0cm)LA (MM) (1.9-4.0cm)Aortic Cusp Exc (1.5-2.0cm) EF (%) 66.0 (55-70%)Rt. Atrium3.8 (1.9-4.0cm)Asc. Aorta cm IVSd1.1 (0.7-1.1cm)RV (D) (1.8-2.4cm) PWd0.7 (0.7-1.1cm) Mitral Valve MitralMitral Stenosis E wave0.91m/sMV Mean GR.3mmHg A wave1.31m/sMV Peak GR.134mmHg E/A ratio0.72D MVAcm2 DECEL [id number] 1/2 [id number] IVRTmsDop MVA2.20cm2 Aortic Valve Aortic ValveAortic Stenosis V11.11m/Chavo Mean GR.14mmHg V22.44m/Chavo Peak GR.24mmHg LVOT Diameter2.0 (1.8-2.4cm)Doppler AVA1.43cm2 Pulmonic Valve V20.84m/s Tricuspid Valve TR Velocity3.16m/s [id number] Other Information Technically limited study due to body habitus. Conclusion Normal left ventricular size and dimension. Normal left ventricular systolic function estimated ejec tion fraction of 50%. There is a grade 1 diastolic dysfunction. Normal right ventricular size and dimension. Normal right ventricular systolic function. Slightly i ncreased right ventricular systolic [id number] mm of mercury There is mildly dilated left atrium. 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 There was no significant gradien t across the aortic valve there was no paravalvular leak or intra valvular regurgitation.. Normal mitral valve structure and function. Normal tricuspid valve structure and function. The pulmonary valve is grossly normal. No pericardial effusion.
== END | disposition home or self-care (01) ==
LOC: XYW 12:03
PROVIDERS: ATTEND Internal Medicine
DX: I51.89 Other ill-defined heart diseases (principal); I51.7 Cardiomegaly; I42.9 Cardiomyopathy, unspecified; Z95.2 Presence of prosthetic heart valve
CPT/HCPCS: 93306

== ENCOUNTER → 2024-06-15 | Outpatient (CLI) | payer MEDICAID ==
[2024-06-15 13:15] LABS: Potassium 3.9 mmol/L (3.5-5.1); Sodium 143 mmol/L (136-145)
[2024-06-15 13:16] LABS: Anion Gap 6 (5-15); Calcium 9.6 mg/dL (8.7-10.4); Carbon Dioxide 30 mmol/L (20-31)
[2024-06-15 13:21] LABS: BUN/Creatinine Ratio 15.4 (10.0-20.0); Blood Urea Nitrogen 12 mg/dL (9-23); Glucose 91 mg/dL (74-106)
[2024-06-15 13:24] LABS: Chloride 107 mmol/L (98-107)
[2024-06-15 13:54] LABS: Creatinine, Urine 186.61 mg/dL (30.0-125.0)
== END | disposition home or self-care (01) ==
LOC: LAB 12:26
PROVIDERS: ATTEND Internal Medicine
DX: I11.0 Hypertensive heart disease with heart failure (principal); I50.9 Heart failure, unspecified; R73.03 Prediabetes
CPT/HCPCS: 36415; 80048; 82043; 82570; 83036

== ENCOUNTER 2024-10-26 10:59 | Outpatient (CLI) | payer MEDICAID ==
[2024-10-26 12:14] LABS: Triglycerides 72 mg/dL (< 150)
[2024-10-26 12:16] LABS: Cholesterol 174 mg/dL (< 200)
[2024-10-26 12:19] LABS: HDL Cholesterol 69 mg/dL (40-59)
== END 2024-10-26 17:00 | disposition home or self-care (01) ==
LOC: LAB 10:59
PROVIDERS: ATTEND Internal Medicine
DX: R73.03 Prediabetes (principal)
CPT/HCPCS: 36415; 80061; 83036; 84443

== ENCOUNTER 2024-10-30 11:42 | Emergency (ER) | payer MEDICAID ==
[~2024-10-30] VITALS: Ht 165.1 cm; Wt 76.0 kg
--- NOTE | 2024-10-30 12:00 | ECG ---
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
--- NOTE | 2024-10-30 12:14 | ED.PDOC ---
History of Present Illness HPI Comments 84-year-old female presents to the ER with prior medical history of CAD, CHF, high lipids, hypertension : Surgical history of PTO, tubal ligation , PTCA and a chief complaint of shortness a breath. Patient reports on originally taking her son to the ER but started to have shortness a breath and has to take a deep breath here and there . States that she has not seen her heart doctor in five years. Patient is taking blood thinners at the moment. Denies chills, fever, N/V/D, CP. No other associated symptoms, modifiers, recent injuries or sick contacts present at this time. Chief Complaint: Shortness of Breath Time Seen by MD: 12:05 Primary Care Provider: MAXI Reviewed Notes: Nurses Notes, Medications, Allergies Allergies: Coded Allergies: MAGALY Inhibitors (Unverified Allergy, Unknown, 05/25/19) Home Meds Active Scripts Acetaminophen (Acetaminophen) 325 Mg Tab, 650 MG PO Q6HPRN PRN, #60 TAB Prov:KARTHIK MENDOZA MD 01/11/21 Apixaban Base (ELIQUIS) 2.5 Mg Tab, 2.5 MG PO BID, #60 TAB Prov:KARTHIK MENDOZA MD 01/11/21 Potassium Chloride (Klor-Con M20) 20 Meq Tab, 20 MEQ PO DAILY, #30 TAB Prov:KAIDEN MENDOZA MD 09/14/19 Furosemide (Lasix) 20 Mg Tb, 2 TAB PO DAILY, #60 TAB 1 Refill Prov:KAIDEN MENDOZA MD 09/14/19 Reported Medications Atorvastatin Calcium (ATORVASTATIN CALCIUM) 20 Mg Tab, 1 TAB PO DAILY, #30 TAB 5 Refills 05/27/19 Metoprolol Tartrate (Metoprolol Tartrate) 25 Mg Tab, 25 MG PO BID for 30 Days, MG 05/27/19 Information Source: Patient Mode of Arrival: Ambulatory Severity: Moderate Timing: Minutes Duration: Since onset, Minutes Prehospital treatment: None Past Medical History PAST MEDICAL HISTORY: CAD, CHF, High Lipids, HTN Surgical History: BTL, PTCA, Tubal Ligation SPLIT AND DRUM ROOM SUPERVISOR History: No Pertinent SPLIT AND DRUM ROOM SUPERVISOR History Family History Family History: Reviewed,noncontributory to illness, Unknown Social History Smoker: Quit Greater Than 1 Year Alcohol: Denies ETOH Use Drugs: Denies Drug Use Lives In: Home Constitutional: denies: chills, diaphoresis, fatigue, fever, malaise, sweats, weakness, others EENTM: denies: blurred vision, double vision, ear bleeding, ear discharge, ear drainage, ear pain, ear ringing, eye pain, eye redness, hearing loss, mouth pain, mouth swelling, nasal discharge, nose bleeding, nose congestion, nose pain, photophobia, tearing, throat pain, throat swelling, voice changes, others Respiratory: reports: SOB at rest, shortness of breath; denies: cough, hemo ptysis, orthopnea, SOB with excertion, stridor, wheezing, others Cardiovascular: denies: chest pain, dizzy spells, diaphoresis, Dyspnea on exertion, edema, irregular heart beat, left arm pain, lightheadedness, palpitations, PND, syncope, others Gastrointestinal: denies: abdomen distended, abdominal pain, blood streaked bowels, constipated, diarrhea, dysphagia, difficulty swallowing, hematemesis, melena, nausea, poor appetite, poor fluid intake, rectal bleeding, rectal pain, vomiting, others Genitourinary: denies: abnormal vagina bleeding, burning, dyspareunia, dysuria, flank pain, frequency, hematuria, incontinence, pain, , vagina discharge, urgency, others Neurological: denies: dizziness, fainting, headache, left sided numbness, left sided weakness, numbness, paresthesia, pre-existing deficit, right sided numbness, right sided weakness, seizure, speech problems, tingling, tremors, weakness, others Musculoskeletal: denies: back pain, gout, joint pain, joint swelling, muscle pain, muscle stiffness, neck pain, others Integumetry: denies: bruises, change in color, change in hair/nails, dryness, laceration, lesions, lumps, rash, wounds, others Allergic/Immunocompromised: denies: Difficulty Healing, Frequent Infections, Hives, Itching, others Hematologic/Lymphatic: denies: anemia, blood clots, easy bleeding, easy bruising, swollen glands, others Endocrine: denies: excessive hunger, excessive sweating, excessive thirst, excessive urination, flushing, intolerance to cold, intolerance to heat, unexplained weight gain, unexplained weight loss, others Psychiatric: denies: anxiety, bipolar disorder, depression, hopeless, panic disorder, schizophrenia, sleepless, suicidal, others All Other Systems: Reviewed and Negative Physical Exam General Appearance: No Apparent Distress, Normal HEENT: Normal ENT Inspection, Pharynx Normal, TMs Normal Neck: Full Range of Motion, Non-Tender, Normal, Normal Inspection Respiratory: Chest Non-Tender, Lungs Clear, No Accessory Muscle Use, No Respiratory Distress, Normal Breath Sounds Cardiovascular: No Edema, No JVD, No Murmur, No Gallop, Normal Peripheral Pulses, Regular Rate/Rhythm Breast Exam: Deferred Gastrointestinal: No Organomegaly, Non Tender, No Pulsatile Mass, Normal Bowel Sounds, Soft Genitalia: Deferred Pelvic: Deferred Rectal: Deferred Extremities: No calf tenderness, Normal capillary refill, Normal inspection, Normal range of motion, Non-tender, No pedal edema Musculoskeletal : Apperance: Normal Neurologic: Alert, wood turning lathe operator II-XII nml as Tested, No Motor Deficits, Normal Affect, Normal Mood, No Sensory Deficits Cerebellar Function: Normal Reflexes: Normal Skin: Dry, Normal Color, Warm Lymphatic: No Adenopathy Was a procedure done? Was a procedure done?: No EKG EKG : Pulse Rate (adult): 55 [place]: Normal Cardiac Rhythm: NSR Block: None Hypertrophy: None ST: Normal Differential Dx Considerations may include: ACS, CVA, viral syndrome, electrolyte already X-Ray, Labs, Meds, VS Vital Signs Date Time Temp Pulse Resp B/P (MAP) Pulse Ox O2 Delivery O2 Flow Rate FiO2 10/30/24 12:14 55 10/30/24 12:07 14 96 Room Air* 0 21 10/30/24 12:01 98.0 57 14 181/63 (102) 96 98.0 10/30/24 11:57 55 10/30/24 11:54 98.0 57 14 181/63 (102) 96 98.0 Lab Test 10/30/24 12:20 Range/Units White Blood Count 7.9 4.4-10.8 10^3/uL Red Blood Count 4.77 4.0-5.20 10^6/uL Hemoglobin 12.9 12.2-16.2 g/dL Hematocrit 39.7 36.0-46.0 % Mean Corpuscular Volume 83.3 80.0-100.0 fL Mean Corpuscular Hemoglobin 27.0 L 28.0-32.0 pg Mean Corpuscular Hemoglobin Concent 32.4 32.0-36.0 g/dL Red Cell Distribution Width 15.7 H 11.8-14.3 % Platelet Count 196 140-450 10^3/uL Mean Platelet Volume 9.4 6.9-10.8 fL Neutrophils (%) (Auto) 52.2 37.0-80.0 % Lymphocytes (%) (Auto) 40.2 10.0-50.0 % Monocytes (%) (Auto) 7.2 0.0-12.0 % Eosinophils (%) (Auto) 0.0 0.0-7.0 % Basophils (%) (Auto) 0.4 0.0-2.0 % Neutrophils # (Auto) 4.1 1.6-8.6 10 ^3/uL Lymphocytes # (Auto) 3.2 0.4-5.4 10 ^3/uL Monocytes # (Auto) 0.6 0-1.3 10 ^3/uL Eosinophils # (Auto) 0 0-0.8 10 ^3/uL Basophils # (Auto) 0 0-0.2 10 ^3/uL Nucleated Red Blood Cells 0.0 % Sodium Level 143 136-145 mmol/L Potassium Level 3.6 3.5-5.1 mmol/L Chloride Level 109 H 98-107 mmol/L Carbon Dioxide Level 28 20-31 mmol/L Anion Gap 6 5-15 Blood Urea Nitrogen 15 9-23 mg/dL Creatinine 0.83 0.550-1.02 mg/dL Glomerular Filtration Rate Calc 69 >90 mL/min BUN/Creatinine Ratio 18.1 10.0-20.0 Serum Glucose 103 74-106 mg/dL Calcium Level 9.8 8.7-10.4 mg/dL Troponin I High Sensitivity 118 *H </=34 ng/L B-Type Natriuretic Peptide 87.97 0-100 pg/mL Time of 1ST Reevaluation: 12:35 Reevaluation 1ST: Unchanged Patient Education/Counseling: Diagnosis, Treatment, Prognosis Family Education/Counseling: No Family Present SEPSIS Sepsis Screen Date sepsis recognized/suspect: Oct 30, 2024 Time Sepsis recognized/suspect: 1150 Recent Procedure: No On Antibiotic Therapy: No Respiratory Rate >20: No Heart Rate >90: No Temp<36 C (96.8 F) or >38.3 C: No SBP <90 or MAP <65 mmHG: No New Acute Mental Status Change: No Is the patient on CPAP, BIPAP,: No Physician Orders Chest Portable (10/30/24 12:03) Troponin-I Hs (10/30/24 13:03) Troponin-I Hs (10/30/24 15:03) Vital Signs Date Time Temp Pulse Resp B/P (MAP) Pulse Ox O2 Delivery O2 Flow Rate FiO2 10/30/24 12:14 55 10/30/24 12:07 14 96 Room Air* 0 21 10/30/24 12:01 98.0 57 14 181/63 (102) 96 98.0 10/30/24 11:57 55 10/30/24 11:54 98.0 57 14 181/63 (102) 96 98.0 Laboratory Tests Test 10/30/24 12:20 White Blood Count 7.9 10^3/uL (4.4-10.8) Departure 1 Departure Time of Disposition: 13:09 (Patient with shortness of breath that is intermittent. Patient's troponin is elevated and we will admit patient for further workup and expert consultation) Impression: Primary Impression: Shortness of breath Additional Impression: Elevated troponin Disposition: 09 ADMITTED INPATIENT Admit to: Med Surg Condition: Serious Critical Care Note Critical Care Time?: Yes Critical care comment: Acute shortness of breath Authorized and Performed by: Surjit Small MD Total critical care time: Approximately 37 minutes Due to a high probability of clinically significant, life threatening deterioration, the patient required my highest level of preparedness to intervene emergently and I personally spent this critical care time directly and personally managing the patient. This critical care time included obtaining a history; examining the patient; pulse oximetry; ordering and review of studies; arranging urgent treatment with development of a management plan; evaluation of patient's response to treatment; frequent reassessment; and, discussions with other providers. This critical care time was performed to assess and manage the high probability of imminent, life-threatening deterioration that could result in multi-organ failure. It was exclusive of separately billable procedures and treating other patients and teaching time. Please see my other sections and the rest of the note for further information on patient assessment and treatment. Stability Stability form required: No I personally scribed for SURJIT SMALL MD ([email or web address]) on 10/30/24 at 12:14. Electronically submitted by Inder Bullard ([email or web address]). I personally scribed for SURJIT SMALL MD ([email or web address]) on 10/30/24 at 12:14. E lectronically submitted by Inder Bullard ([email or web address]). SURJIT SMALL MD Oct 30, 2024 12:14
--- NOTE | 2024-10-30 12:48 | DVH ---
CHEST RADIOGRAPH Indication: sob Technique: Single frontal view of the chest was obtained COMPARISON: CXRP on DOS: 01/08/21, CHEST PORTABLE on DOS: 01/08/21, CXRP on DOS: 01/07/21, CHEST PORTABL E on DOS: 01/07/21, CHEST PORTABLE on DOS: 01/06/21 FINDINGS: Lines and Tubes: None Lungs: Clear Pleura: No effusion. No pneumothorax. Cardiomediastinal contours: Unremarkable Bones: Unremarkable IMPRESSION: No acute disease.
[2024-10-30 12:49] LABS: Hematocrit 39.7 % (36.0-46.0); Hemoglobin 12.9 g/dL (12.2-16.2); Mean Corpuscular Hemoglobin 27.0 pg (28.0-32.0); Mean Corpuscular Volume 83.3 fL (80.0-100.0); Nucleated Red Blood Cells % 0.0 %
[2024-10-30 12:54] LABS: Potassium 3.6 mmol/L (3.5-5.1); Sodium 143 mmol/L (136-145)
[2024-10-30 12:55] LABS: Anion Gap 6 (5-15); Calcium 9.8 mg/dL (8.7-10.4); Carbon Dioxide 28 mmol/L (20-31)
[2024-10-30 12:57] LABS: Chloride 109 mmol/L (98-107)
[2024-10-30 13:00] LABS: BUN/Creatinine Ratio 18.1 (10.0-20.0); Blood Urea Nitrogen 15 mg/dL (9-23); Glucose 103 mg/dL (74-106)
[2024-10-30] MEDS: ASPirin-EC 325mg tab PO ONE (14:00)
[2024-10-30 15:30] VITALS: BP 190/72; PULSE 58; RESP 16; TEMP 98.3; O2SAT 97
== END 2024-10-30 16:23 | disposition left against medical advice (07) ==
LOC: ER 11:42
DX: R06.02 Shortness of breath (principal); R79.89 Other specified abnormal findings of blood chemistry; I11.0 Hypertensive heart disease with heart failure; I50.9 Heart failure, unspecified; E78.5 Hyperlipidemia, unspecified; Z79.899 Other long term (current) drug therapy; Z98.51 Tubal ligation status; Z98.890 Other specified postprocedural states; Z87.891 Personal history of nicotine dependence; Z88.8 Allergy status to other drugs, medicaments and biological substances
CPT/HCPCS: 36415; 71045; 80048; 83880; 84484; 85025; 93005

== ENCOUNTER 2024-10-30 16:54 | Inpatient (IN) | payer MEDICAID ==
[~2024-10-30] VITALS: Ht 165.1 cm; Wt 79.8 kg
--- NOTE | 2024-10-30 18:17 | ED.PDOC ---
History of Present Illness HPI Comments 84-year-old female presents to the ER with prior medical history of CAD, CHF, high lipids, hypertension : Surgical history of PTO, tubal ligation , PTCA and a chief complaint of shortness a breath. Patient reports on originally taking her son to the ER but started to have shortness a breath and has to take a deep breath here and there . States that she has not seen her heart doctor in five years. Patient is taking blood thinners at the moment. Denies chills, fever, N/V/D, CP. No other associated symptoms, modifiers, recent injuries or sick contacts present at this time. Patient was seen in ED earlier today for the same, was advised admission, diagnosed with shortness of breath and elevated troponin levels. Patient however signed AMA at 1623 hours. Patient coming back again after an hour for admission. Chief Complaint: Shortness of Breath Time Seen by MD: 18:15 Primary Care Provider: MAXI Allergies: Coded Allergies: MAGALY Inhibitors (Unverified Allergy, Unknown, 05/25/19) Home Meds Active Scripts Acetaminophen (Acetaminophen) 325 Mg Tab, 650 MG PO Q6HPRN PRN, #60 TAB Prov:KARTHIK MENDOZA MD 01/11/21 Apixaban Base (ELIQUIS) 2.5 Mg Tab, 2.5 MG PO BID, #60 TAB Prov:KARTHIK MENDOZA MD 01/11/21 Potassium Chloride (Klor-Con M20) 20 Meq Tab, 20 MEQ PO DAILY, #30 TAB Prov:KAIDEN MENDOZA MD 09/14/19 Furosemide (Lasix) 20 Mg Tb, 2 TAB PO DAILY, #60 TAB 1 Refill Prov:KAIDEN MENDOZA MD 09/14/19 Reported Medications Atorvastatin Calcium (ATORVASTATIN CALCIUM) 20 Mg Tab, 1 TAB PO DAILY, #30 TAB 5 Refills 05/27/19 Metoprolol Tartrate (Metoprolol Tartrate) 25 Mg Tab, 25 MG PO BID for 30 Days, MG 05/27/19 Information Source: Patient Mode of Arrival: Ambulatory Severity: Moderate Timing: Hours Duration: Since onset Prehospital treatment: Oxygen Past Medical History PAST MEDICAL HISTORY: CAD, CHF, High Lipids, HTN Surgical History: BTL, PTCA, Tubal Ligation SPRING FORMER History: No Pertinent SPRING FORMER History Family History Family History: Reviewed,noncontributory to illness, Unknown Social History Smoker: Quit Greater Than 1 Year Alcohol: Denies ETOH Use Drugs: Denies Drug Use Lives In: Home Constitutional: reports: weakness; denies: chills, diaphoresis, fatigue, fever, malaise, sweats, others EENTM: denies: blurred vision, double vision, ear bleeding, ear discharge, ear drainage, ear pain, ear ringing, eye pain, eye redness, hearing loss, mouth pain, mouth swelling, nasal discharge, nose bleeding, nose congestion, nose pain, photophobia, tearing, throat pain, throat swelling, voice changes, others Respiratory: reports: SOB at rest, shortness of breath; denies: cough, hemoptysis, orthopnea, SOB with excertion, stridor, wheezing, others Cardiovascular: denies: chest pain, dizzy spells, diaphoresis, Dyspnea on exertion, edema, irregular heart beat, left arm pain, lightheadedness, palpitations, PND, syncope, others Gastrointestinal: denies: abdomen distended, abdominal pain, blood streaked bowels, constipated, diarrhea, dysphagia, difficulty swallowing, hematemesis, melena, nausea, poor appetite, poor fluid intake, rectal bleeding, rectal pain, vomiting, others Genitourinary: denies: abnormal vagina bleeding, burning, dyspareunia, dysuria, flank pain, frequency, hematuria, incontinence, pain, , vagina dis charge, urgency, others Neurological: denies: dizziness, fainting, headache, left sided numbness, left sided weakness, numbness, paresthesia, pre-existing deficit, right sided numbness, right sided weakness, seizure, speech problems, tingling, tremors, weakness, others Musculoskeletal: denies: back pain, gout, joint pain, joint swelling, muscle pain, muscle stiffness, neck pain, others Integumetry: denies: bruises, change in color, change in hair/nails, dryness, laceration, lesions, lumps, rash, wounds, others Allergic/Immunocompromised: denies: Difficulty Healing, Frequent Infections, Hives, Itching, others Hematologic/Lymphatic: denies: anemia, blood clots, easy bleeding, easy bruising, swollen glands, others Endocrine: denies: excessive hunger, excessive sweating, excessive thirst, excessive urination, flushing, intolerance to cold, intolerance to heat, unexplained weight gain, unexplained weight loss, others Psychiatric: denies: anxiety, bipolar disorder, depression, hopeless, panic disorder, schizophrenia, sleepless, suicidal, others Physical Exam General Appearance: No Apparent Distress HEENT: Other (Pupils and face symmetric. Moist mucous membranes.) Neck: Full Range of Motion, Normal Inspection Respiratory: No Accessory Muscle Use, No Respiratory Distress Cardiovascular: Regular Rate/Rhythm Breast Exam: Deferred Gastrointestinal: Non Tender, Soft Genitalia: Other Pelvic: Deferred Rectal: Deferred Extremities: Normal range of motion Neurologic: Alert (Oriented x4), Normal Affect, Normal Mood, Other (Ambulatory) Cerebellar Function: NOT DONE Reflexes: NOT DONE Skin: Dry, Normal Color, Warm Lymphatic: NOT DONE Was a procedure done? Was a procedure done?: No Differential Dx Considerations may include: anemia, electrolyte imbalance, pneumonia, NSTEMI, CHF, COPD, asthma, PE, among others X-Ray, Labs, Meds, VS Vital Signs Date Time Temp Pulse Resp B/P (MAP) Pulse Ox O2 Delivery O2 Flow Rate FiO2 10/30/24 17:47 98.0 67 16 174/72 (106) 96 98.0 10/30/24 17:35 70 X-Ray, Labs, Meds, VS Comment 84-year-old female seen in the ED earlier today and was awaiting hospital admission when she left against medical advice. Patient returns now for admission. Please see Dr. Small's note for details. Time of 1ST Reevaluation: 18:15 Reevaluation 1ST: Unchanged Patient Education/Counseling: Diagnosis, Treatment Family Education/Counseling: No Family Present SEPSIS Sepsis Screen Date sepsis recognized/suspect: Oct 30, 2024 Time Sepsis recognized/suspect: 1719 Recent Procedure: No On Antibiotic Therapy: No Respiratory Rate >20: No Heart Rate >90: No Temp<36 C (96.8 F) or >38.3 C: No SBP <90 or MAP <65 mmHG: No New Acute Mental Status Change: No Is the patient on CPAP, BIPAP,: No Physician Orders Electrocardigram (10/30/24 17:48) Vital Signs Date Time Temp Pulse Resp B/P (MAP) Pulse Ox O2 Delivery O2 Flow Rate FiO2 10/30/24 17:47 98.0 67 16 174/72 (106) 96 98.0 10/30/24 17:35 70 Departure 1 Departure Time of Disposition: 18:30 Impression: Primary Impression: Shortness of breath Additional Impression: Elevated troponin Disposition: ADMITTED INPATIENT Admit to: Tele Condition: Guarded Critical Care Note Critical Care Time?: No Stability Stability form required: No Heart Score Heart Score: Heart Score Response (Comments) Value History Slightly Suspicious 0 EKG Repolarization Disturb 1 Age >65 2 Risk Factors >3 or Hx ASHD 2 Troponin >3 x's Normal limit 2 Total 7 I personally scribed for EH DANIELS MD ([email or web address]) on 10/30/24 at 18:17. Electronically submitted by Paco Garcia ([facility]). EH DANIELS MD Oct 30, 2024 18:17
[2024-10-30] MEDS: PANTOPRAZOLE 40 MG TAB PO ONE (22:45)
[2024-10-30] MEDS: FUROSEMIDE 20 MG TAB PO ONE (22:45)
--- NOTE | 2024-10-30 23:10 | DVHHP2 ---
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 As per patient she has been having shortness of breath for last 1 week which worsened with exertion, no orthopnea or PND. Patient also reported shortness of breath was getting worse that is why she came to the ER. Patient came to the ER in the morning and she was advised to be admitted but patient left AMA and came back after 1 hour. Initial lab workup revealed potassium 3.4, troponin I 104, BNP 94, TSH 3.22. CXR on 10/30/2024 revealed no acute cardiopulmonary disease. Past Medical History CAD, status post PTCA in 2019 in [facility] as per patient, CHF, hyperlipidemia, hypertension, SMA angioplasty with a stent in 2020, status post small bowel resection 3 ft due to bowel ischemia in 2020 Family History Could not give details of family history Past Social History Ex-smoker, denies alcoholism or substance abuse, lives with son Review of Systems Review of Systems Allergy- MAGALY inhibitor Patient was seen today at the bedside. Cardiovascular- deny acute chest pain cough or palpitation Respiratory denies cough or wheezing Gastrointestinal- denies any rectal bleeding, nausea or vomiting Musculoskeletal-denies acute joint swelling or tenderness or redness Neurological- denies acute dysarthria, dysphagia, change in vision Psychiatry- denies depression or SI or HI Skin- denies acute rash or purpura Allergies: Coded Allergies: MAGALY Inhibitors (Unverified Allergy, Unknown, 05/25/19) Medications Current Medications Medications Dose Ordered Sig/Reji Route Start Time Stop Time Status Last Admin Dose Admin Apixaban 2.5 mg BID PO 10/31/24 10:00 Atorvastatin Calcium 20 mg DAILY PO 10/31/24 10:00 Metoprolol Tartrate 25 mg BID PO 10/31/24 10:00 Furosemide 20 mg BIDD PO 10/31/24 06:00 Pantoprazole Sodium 40 mg DAILY@0600 PO 10/31/24 06:00 Exam Vital Signs Vital Signs Date Time Temp Pulse Resp B/P (MAP) Pulse Ox O2 Delivery O2 Flow Rate FiO2 10/30/24 20:23 55 17 98 10/30/24 20:23 98.6 159/69 (99) 98.6 Exam General examination- awake, alert, oriented HEENT- PEERLA, no acute nasal discharge Cardiovascular- S1-S2 audible, rate and rhythm regular, systolic murmur along the right upper sternal border Respiratory- bilateral lung crackles+ Gastrointestinal-nontender, bowel sound+. Nondistended Musculoskeletal-no acute joint swelling or tenderness or redness Lower extremity-no leg edema Neurological- cranial nerves intact, no acute dysarthria or dysphagia Psychiatry- denies depression or SI or HI Skin- no acute rash or purpura SEPSIS Sepsis Screen Date sepsis recognized/suspect: Oct 30, 2024 Time Sepsis recognized/suspect: 1719 Recent Procedure: No On Antibiotic Therapy: No Respiratory Rate >20: No Heart Rate >90: No Temp<36 C (96.8 F) or >38.3 C: No SBP <90 or MAP <65 mmHG: No New Acute Mental Status Change: No Is the patient on CPAP, BIPAP,: No Physician Orders Electrocardigram (10/30/24 17:48) Apixaban (Eliquis) (10/31/24 10:00) Atorvastatin (Lipitor) (10/31/24 10:00) Metoprolol Tartrate Tablet (Lopressor Ta (10/31/24 10:00) Electrocardigram (10/30/24 22:28) Echo 2d Mode Cardiac Dop (10/30/24 22:28) Furosemide Tablet (Lasix Tablet) (10/31/24 06:00) Pantoprazole Tablet (Protonix Tablet) (10/31/24 06:00) Urinalysis (10/30/24 22:47) Vital Signs Date Time Temp Pulse Resp B/P (MAP) Pulse Ox O2 Delivery O2 Flow Rate FiO2 10/30/24 20:23 55 17 98 10/30/24 20:23 98.6 55 16 159/69 (99) 96 98.6 10/30/24 17:47 98.0 67 16 174/72 (106) 96 98.0 10/30/24 17:35 70 Assessment/Plan Assessment/Plan Assessment and plan # acute shortness of breaths likely due to acute on chronic heart failure- systolic versus diastolic, rule out pneumonia # acute on chronic heart failure systolic versus diastolic # history of severe aortic stenosis, status post TAVR # CAD, status post PTCA #NSTEMI likely type 2 likely due to demand led ischemia # history of atrial fibrillation -continue atorvastatin 20 mg p.o. daily -continue metoprolol 25 mg p.o. b.i.d. -continue Lasix 20 mg p.o. b.i.d. -continue Eliquis 2.5 mg p.o. b.i.d. -pending echo 2D -pending cardiology consult # severe aortic stenosis, status post TAVR -pending echo 2D -pending cardiology consult # hyperlipidemia -continue atorvastatin 20 mg q.h.s. # hypertension -continue metoprolol 25 mg p.o. b.i.d. -monitor vitals # history of bowel ischemia, status post superior mesenteric artery angioplasty with a stent -no acute abdominal pain or diarrhea - continue monitoring clinically Diet-Cardiac diet Goals of care, Code status full code ; discussed with >15 minutes PUD prophylaxis: Pantoprazole DVT prophylaxis: Patient on Eliquis Plan discussed with Dr. Puri , nursing staff, Total time spent on patient evaluation, chart review, assessment and plan, discussion discussion >35 minutes Plan discussed with: Patient, Other My Orders Orders - LENA RIVERS Procedure Category Date Status Time Apixaban (Eliquis) PHA 10/31/24 In Process 10:00 Atorvastatin (Lipitor) PHA 10/31/24 In Process 10:00 Metoprolol Tartrate PHA 10/31/24 In Process Tablet (Lopressor Ta 10:00 Electrocardigram EKG 10/30/24 Logged 22:28 Echo 2d Mode Cardiac US 10/30/24 Logged DOP 22:28 Furosemide Tablet PHA 10/31/24 In Process (Lasix Tablet) 06:00 Pantoprazole Tablet PHA 10/31/24 In Process (Protonix Tablet) 06:00 Urinalysis LAB 10/30/24 Logged 22:47 Date of Service: Oct 30, 2024 Billing Provider: ABRIL PURI MD Common Visit Codes: 16827-[id number] INP/OBS CARE (HIGH) Secondary Visit Codes: 48359-[id number] CARE PLAN 30 MINUTES LENA RIVERS Oct 30, 2024 23:10
[2024-10-30] MEDS ORDERED: MORPHINE SULFATE INJ 2 MG/ml SYRG IV PRN (23:15)
[2024-10-30] MEDS ORDERED: NITROGLYCERIN 0.4 MG SL TAB SL PRN (23:15)
[2024-10-31] VITALS (9 sets, daily range): BP systolic 129–170; BP diastolic 61–81; PULSE 60–77; RESP 16–18; TEMP 97.5–98.5; O2SAT 94–98
[2024-10-31] MEDS: SODIUM CHLOR 0.9% PF (SALINE LOCK) 10ML VIAL/SYR IV SCH (00:16)
[2024-10-31] MEDS: PANTOPRAZOLE 40 MG TAB PO ONE (01:00)
[2024-10-31] MEDS: FUROSEMIDE 20 MG TAB PO ONE (01:01)
[2024-10-31 01:57] LABS: Hematocrit 40.7 % (36.0-46.0); Hemoglobin 13.0 g/dL (12.2-16.2); Mean Corpuscular Hemoglobin 26.7 pg (28.0-32.0); Mean Corpuscular Volume 83.5 fL (80.0-100.0); Nucleated Red Blood Cells % 0.3 %
[2024-10-31 02:14] LABS: Alanine Aminotransferase < 9 U/L (7-40); Albumin 4.3 g/dL (3.2-4.8); Alkaline Phosphatase 93 U/L (46-116); Anion Gap 8 (5-15); BUN/Creatinine Ratio 15.8 (10.0-20.0); Blood Urea Nitrogen 15 mg/dL (9-23); Calcium 9.3 mg/dL (8.7-10.4); Carbon Dioxide 27 mmol/L (20-31); Chloride 108 mmol/L (98-107); Glucose 109 mg/dL (74-106); Potassium 3.4 mmol/L (3.5-5.1); Sodium 143 mmol/L (136-145); Total Protein 7.7 g/dL (5.7-8.2)
[2024-10-31 02:15] LABS: Bilirubin, Total 0.3 mg/dL (0.2-1.0)
[2024-10-31] MEDS: POTASSIUM CHL 20 Meq TABLET PO ONE (03:17)
[2024-10-31] MEDS ORDERED: hydrALAZINE HCL 20 MG/ML VL IV PRN (04:00)
[2024-10-31] MEDS: hydrALAZINE HCL 20 MG/ML VL IV ONE (04:19)
[2024-10-31] MEDS: PANTOPRAZOLE 40 MG TAB PO SCH (05:44)
[2024-10-31] MEDS: FUROSEMIDE 20 MG TAB PO SCH (05:46)
[2024-10-31] MEDS: MAGNESIUM SULFATE 1GM/100ML 100 ML IV ONE (05:46)
[2024-10-31 07:31] LABS: Hemoglobin 12.9 g/dL (12.2-16.2); Mean Corpuscular Hemoglobin 26.7 pg (28.0-32.0); Mean Corpuscular Volume 82.6 fL (80.0-100.0)
[2024-10-31 07:35] LABS: Hematocrit 39.9 % (36.0-46.0); Nucleated Red Blood Cells % 0.0 %
[2024-10-31 07:57] LABS: Alanine Aminotransferase 10 U/L (7-40); Alkaline Phosphatase 91 U/L (46-116); Anion Gap 11 (5-15); BUN/Creatinine Ratio 15.3 (10.0-20.0); Blood Urea Nitrogen 13 mg/dL (9-23); Calcium 9.8 mg/dL (8.7-10.4); Carbon Dioxide 29 mmol/L (20-31); Chloride 105 mmol/L (98-107); Glucose 102 mg/dL (74-106); Sodium 145 mmol/L (136-145); Total Protein 7.2 g/dL (5.7-8.2)
[2024-10-31 07:58] LABS: Albumin 4.1 g/dL (3.2-4.8); Bilirubin, Total 0.3 mg/dL (0.2-1.0); Potassium 3.5 mmol/L (3.5-5.1)
[2024-10-31] MEDS ORDERED: ENOXAPARIN SOD 40 MG/0.4 ML SYRINGE SC SCH (10:00)
[2024-10-31] MEDS: APIXABAN 2.5 MG TAB PO SCH (10:22)
[2024-10-31] MEDS: METOPROLOL TARTRATE 25 MG TAB PO SCH (10:22)
[2024-10-31] MEDS: ATORVASTATIN 20 MG TAB PO SCH (10:23)
--- NOTE | 2024-10-31 12:34 | DVHINCON2 ---
Date Seen: Oct 31, 2024 Referring Physician Kyle Reason for Consultation CHF, Aortic Stenosis, SOB History of Present Illness 84-year-old female with PMH for severe aortic stenosis s/p TAVR, mild nonobstructive CAD with angiogram in 2019, PAF on low dose eliquis, CHF, HLD, HTN, superior mesenteric artery angioplasty with stent in 2020, s/p small-bowel resection, presents to the hospital with shortness of breath. Patient was initially here for family member and was getting short of breath and was seen in the ER though left AMA and came back 1 hour later due to worsening shortness of breath and per family instruction. Patient states initially upon evaluation patient's blood pressure was significantly elevated 210 systolic. Workup in the ER showed mildly elevated troponins trending 104, 106. CXR negative. BNP negative. EKG reviewed and shows sinus rhythm at 70 beats per minute with ventricular bigeminy rhythm, LBBB. Past Medical History As stated above Past Surgical History As stated above Family History: FH: brain tumor AUNT, FH: lung cancer AUNT, Social History Denies alcohol, tobacco, or illicit drug Allergies: Coded Allergies: MAGALY Inhibitors (Unverified Allergy, Unknown, 05/25/19) Home Meds Active Scripts Acetaminophen (Acetaminophen) 325 Mg Tab, 650 MG PO Q6HPRN PRN, #60 TAB Prov:KARTHIK MENDOZA MD 01/11/21 Apixaban Base (ELIQUIS) 2.5 Mg Tab, 2.5 MG PO BID, #60 TAB Prov:KARTHIK MENDOZA MD 01/11/21 Potassium Chloride (Klor-Con M20) 20 Meq Tab, 20 MEQ PO DAILY, #30 TAB Prov:KAIDEN MENDOZA MD 09/14/19 Furosemide (Lasix) 20 Mg Tb, 2 TAB PO DAILY, #60 TAB 1 Refill Prov:KAIDEN MENDOZA MD 09/14/19 Reported Medications Atorvastatin Calcium (ATORVASTATIN CALCIUM) 20 Mg Tab, 1 TAB PO DAILY, #30 TAB 5 Refills 05/27/19 Metoprolol Tartrate (Metoprolol Tartrate) 25 Mg Tab, 25 MG PO BID for 30 Days, MG 05/27/19 Current Medications Current Medications Medications (Trade) Dose Ordered Sig/Reji Route PRN Reason Start Time Stop Time Status Last Admin Apixaban (Eliquis) 2.5 mg BID PO 10/31/24 10:00 10/31/24 10:22 Atorvastatin Calcium (Lipitor) 20 mg DAILY PO 10/31/24 10:00 10/31/24 10:23 Metoprolol Tartrate (Lopressor Tablet) 25 mg BID PO 10/31/24 10:00 10/31/24 10:22 Furosemide (Lasix Tablet) 20 mg BIDD PO 10/31/24 06:00 Pantoprazole Sodium (Protonix Tablet) 40 mg DAILY@0600 PO 10/31/24 06:00 10/31/24 05:44 Sodium Chloride (Saline Lock Ns) 10 ml Q8HR IV 10/31/24 06:00 10/31/24 00:16 Enoxaparin Sodium (Lovenox) 40 mg DAILY SC 10/31/24 10:00 10/31/24 00:56 DC Morphine Sulfate 2 mg Q30M PRN IV FOR CHEST PAIN 10/30/24 23:15 Nitroglycerin (Ntrostat Sublingual) 0.4 mg Q5MINP PRN SL FOR CHEST PAIN 10/30/24 23:15 Hydralazine HCl (Apresoline Injection) 10 mg Q6HP PRN IV SBP>160 10/31/24 04:00 Aspirin 81 mg DAILY PO 10/31/24 10:00 10/31/24 10:22 Review of Systems Constitutional: No: Fever, Chills, Sweats, Weakness, Malaise, Other Eyes: No: Pain, Vision change, Conjunctivae inflammation, Eyelid inflammation, Other, Redness ENT: No: Ear pain, Ear discharge, Nose pain, Nose discharge, Nose congestion, Mouth pain, Mouth swelling, Throat pain, Throat swelling, Other Respiratory: No: Cough, Dry, Shortness of breath, SOB with exertion, Wheezing, Hemoptysis, Pleuritic Pain, Sputum, Wheezing, Other Cardiovascular: ; No: Chest Pain Palpitations, Orthopnea, Paroxysmal Noc. Dyspnea, Edema, Lt Headedness, Other Gastrointestinal: No: Nausea, Vomiting, Abdominal Pain, Diarrhea, Constipation, Melena, Hematochezia, Other Genitourinary: No Dysuria, No Frequency, No Incontinence, No Hematuria, No Retention, No Other Musculoskeletal: neck pain; No: other, shoulder pain, arm pain, back pain, hand pain, leg pain, foot pain Skin: No: Rash, Lesions, Jaundice, Bruising, Other Neurological: Other (Dizziness, headache.); No: Weakness, Numbness, Incoordination, Change in speech, Confusion, Seizures Vital Signs Vital Signs Date Time Temp Pulse Resp B/P (MAP) Pulse Ox O2 Delivery O2 Flow Rate FiO2 10/31/24 10:22 74 131/71 10/31/24 09:14 98.1 16 97 98.1 10/31/24 08:00 Room Air* 0 21 Physical Exam General appearance: Patient is well-developed, well-nourished, in no acute distress. HEENT: Exam shows: Normocephalic, atraumatic, PERRLA, EOMI Neck: Supple, no bruits Chest: Equal chest excursion bilaterally. Breath sounds diminished. Heart: Rhythm: Regular rate; no murmur or gallop Abdomen: Exam shows: Soft, nontender, nondistended Musculoskeletal: No clubbing, no cyanosis, no lower extremity edema Dermatology: Skin warm, moist. Neurological: Exam shows: Alert and oriented x4, normal speech Available prior records, labs, EKG, rhythm strips reviewed and interpreted Labs/Diagnostic Data Labs Test 10/31/24 06:18 10/31/24 02:40 10/31/24 01:37 Range/Units White Blood Count 7.9 4.4-10.8 10^3/uL Red Blood Count 4.83 4.0-5.20 10^6/uL Hemoglobin 12.9 12.2-16.2 g/dL Hematocrit 39.9 36.0-46.0 % Mean Corpuscular Volume 82.6 80.0-100.0 fL Mean Corpuscular Hemoglobin 26.7 L 28.0-32.0 pg Mean Corpuscular Hemoglobin Concent 32.3 32.0-36.0 g/dL Red Cell Distribution Width 15.5 H 11.8-14.3 % Platelet Count 183 140-450 10^3/uL Mean Platelet Volume 9.5 6.9-10.8 fL Neutrophils (%) (Auto) 57.1 37.0-80.0 % Lymphocytes (%) (Auto) 36.4 10.0-50.0 % Monocytes (%) (Auto) 6.3 0.0-12.0 % Eosinophils (%) (Auto) 0.0 0.0-7.0 % Basophils (%) (Auto) 0.2 0.0-2.0 % Neutrophils # (Auto) 4.5 1.6-8.6 10 ^3/uL Lymphocytes # (Auto) 2.9 0.4-5.4 10 ^3/uL Monocytes # (Auto) 0.5 0-1.3 10 ^3/uL Eosinophils # (Auto) 0 0-0.8 10 ^3/uL Basophils # (Auto) 0 0-0.2 10 ^3/uL Nucleated Red Blood Cells 0.0 % Sodium Level 145 136-145 mmol/L Potassium Level 3.5 3.5-5.1 mmol/L Chloride Level 105 98-107 mmol/L Carbon Dioxide Level 29 20-31 mmol/L Anion Gap 11 5-15 Blood Urea Nitrogen 13 9-23 mg/dL Creatinine 0.85 0.550-1.02 mg/dL Glomerular Filtration Rate Calc 67 >90 mL/min BUN/Creatinine Ratio 15.3 10.0-20.0 Serum Glucose 102 74-106 mg/dL Calcium Level 9.8 8.7-10.4 mg/dL Total Bilirubin 0.3 0.2-1.0 mg/dL Aspartate Amino Transferase (AST) 18 13-40 U/L Alanine Aminotransferase (ALT) 10 7-40 U/L Alkaline Phosphatase 91 46-116 U/L Troponin I High Sensitivity 109 *H </=34 ng/L Total Protein 7.2 5.7-8.2 g/dL Albumin 4.1 3.2-4.8 g/dL Magnesium Level 1.8 1.6-2.6 mg/dL B-Type Natriuretic Peptide 94.81 0-100 pg/mL Vitamin D 25-Hydroxy 33.2 30.0-100 ng/mL Thyroid Stimulating Hormone (TSH) 3.22 0.55-4.78 uIU/mL Assessment * Mildly Elevated Troponin - Denies CP. Likely demand ischemia in setting of uncontrolled HTn. Continue on aspirin and statin. Previous coronary angiogram in showing no significant CAD. Check ECHO * Uncontrolled HTN - continue on metoprolol 25 mg po twice daily. BP better controlled, amlodipine 5 mg daily added. titrate as tolerated. * Chronic Diastolic HF - CXR negative for congestion. BNP negative. Breathing stable on RA now that BP controlled. Continue home dose lasix. * Hx Aortic Stenosis S/P TAVR 2019 - Check ECHO * Paroxysmal Atrial Fibrillation - Currently Sinus Rhythm. Continue tele monitoring. On metoprolol 25 mg po twice daily. On low dose eliquis 2.5 mg twice daily for stroke prophylaxis. * Hx Mild Non obstructive CAD - On eliquis and statin. * Bigeminy - Improved with restarting metoprolol. Patient will benefit from outpatient follow up for event monitoring. Case Discussed with Dr Antonio. BP better controlled titrate meds as tolerated. Check ECHO. Continue home dose diuretics. Continue tele monitoring. No further cardiac workup indicated at this time given no significant abnormalities on ECHO. Critical care, time spent: 39 minutes This medical document was created using an electronic medical record system with voice recognition software and computerized dictation system. Although this document has been carefully reviewed, there might still be some phonetic and typographical errors. Occasional wrong-word or ``sound-alike substitutions may have occurred due to the inherent limitations of voice recognition software. These areas are purely typographical due to imperfections of the software programs and do not reflect any compromise in the patient's medical care. Please read the chart carefully and recognize, using context, where these substitutions have occurred. Thank you for allowing me to participate in the management of this patient. The treatment plan was discussed with and agreed upon by patient/family including requesting consultants and ordering of imaging/procedures. Plan discussed with: Patient, Daughter NYHA 2 Physical activity limitations: Class2(Slight)fatigue,sob Date of Service: Oct 31, 2024 Billing Provider: LIZZIE GONSALEZ Cardiology Common Codes: [id number] INP/OBS CARE (High), [id number] CARE 30-74 MIN LIZZIE GONSALEZ Oct 31, 2024 12:34
--- NOTE | 2024-10-31 13:34 | DVHPN2 ---
Reviewed: Care Plan, H&P, Labs, Medications, Previous Orders, Radiology Changes from previous H/P or p: No Changes Objective Vitals Vital Signs Date Time Temp Pulse Resp B/P (MAP) Pulse Ox O2 Delivery O2 Flow Rate FiO2 10/31/24 12:46 98.3 60 18 129/81 (97) 97 98.3 10/31/24 08:00 Room Air* 0 21 Intake/Output Intake and Output 10/31/24 07:00 Intake Total 250 ml Balance 250 ml Intake Oral 250 ml # Voids 3 Medications Current Medications Medications Dose Ordered Sig/Reji Route Start Time Stop Time Status Last Admin Dose Admin Apixaban 2.5 mg BID PO 10/31/24 10:00 10/31/24 10:22 2.5 MG Atorvastatin Calcium 20 mg DAILY PO 10/31/24 10:00 10/31/24 10:23 20 MG Metoprolol Tartrate 25 mg BID PO 10/31/24 10:00 10/31/24 10:22 25 MG Furosemide 20 mg BIDD PO 10/31/24 06:00 Pantoprazole Sodium 40 mg DAILY@0600 PO 10/31/24 06:00 10/31/24 05:44 40 MG Sodium Chloride 10 ml Q8HR IV 10/31/24 06:00 10/31/24 00:16 10 ML Morphine Sulfate 2 mg Q30M PRN IV 10/30/24 23:15 Nitroglycerin 0.4 mg Q5MINP PRN SL 10/30/24 23:15 Hydralazine HCl 10 mg Q6HP PRN IV 10/31/24 04:00 Aspirin 81 mg DAILY PO 10/31/24 10:00 10/31/24 10:22 81 MG Laboratory Results Laboratory Tests 10/31/24 06:18 Chemistry Test 10/31/24 01:37 10/31/24 02:40 10/31/24 06:18 Albumin 4.3 g/dL (3.2-4.8) 4.1 g/dL (3.2-4.8) Calcium Level 9.3 mg/dL (8.7-10.4) 9.8 mg/dL (8.7-10.4) Total Protein 7.7 g/dL (5.7-8.2) 7.2 g/dL (5.7-8.2) Magnesium Level 1.8 mg/dL (1.6-2.6) Cardiac Markers Test 10/31/24 01:37 B-Type Natriuretic Peptide 94.81 pg/mL (0-100) LFT Test 10/31/24 01:37 10/31/24 06:18 Alanine Aminotransferase (ALT) < 9 U/L (7-40) 10 U/L (7-40) Alkaline Phosphatase 93 U/L (46-116) 91 U/L (46-116) Aspartate Amino Transferase (AST) 17 U/L (13-40) 18 U/L (13-40) Total Bilirubin 0.3 mg/dL (0.2-1.0) 0.3 mg/dL (0.2-1.0) HgA1c, TSH Test 10/31/24 01:37 Thyroid Stimulating Hormone (TSH) 3.22 uIU/mL (0.55-4.78) Labs and/or images reviewed: Labs reviewed by me, Image(s) reviewed by me Assessment/Plan Assessment/Plan Acute on chronic respiratory failure secondary to congestive heart failure Acute exacerbation of chronic systolic versus diastolic congestive heart failure, cardiology consult by Dr. Antonio appreciated Possible community-acquired pneumonia Severe aortic stenosis status post TAVR History of coronary artery disease status post stents Non ST-elevation [place] type 2 due to demand ischemia AFib: Eliquis Hypercholesterolemia Hypertension History of bowel ischemia status post superior mesenteric artery angioplasty with a stent Time spent 70 minutes Advanced care planning time 20 minutes Patient is full code Plan discussed with: Patient Date of Service: Oct 31, 2024 Billing Provider: HIWOT AVERY MD Common Visit Codes: [id number] CARE 30-74 MIN HIWOT AVERY MD Oct 31, 2024 13:34
--- NOTE | 2024-10-31 18:15 | DVHSR ---
APPROVED REPORT EXAM: Two-dimensional and M-mode echocardiogram with Doppler and color Doppler. Blood Pressure: 151/70 mmHg INDICATION SOB RISK FACTORS Height: 5'5, Weight: 169 DIMENSIONS LVDd3.8 (3.8-5.7cm)LA (2D)4.0 (1.9-4.0cm)Aortic Root (2.0-3.7cm) LVDs2.9 (2.5-4.0cm)LA (MM) (1.9-4.0cm)Aortic Cusp Exc (1.5-2.0cm) EF (%) 50.0 (55-70%)Rt. Atrium3.3 (1.9-4.0cm)Asc. Aorta cm IVSd1.6 (0.7-1.1cm)RV (D)4.1 (1.8-2.4cm) PWd1.0 (0.7-1.1cm) Mitral Valve MitralMitral Stenosis E wave0.79m/sMV Mean GR.mmHg A wave1.20m/sMV Peak GR.91mmHg E/A ratio0.72D MVAcm2 DECEL [id number] 1/2 Tim[place] Aortic Valve Aortic ValveAortic Stenosis V11.10m/Chavo Mean GR.12mmHg V22.25m/Chavo Peak GR.19mmHg LVOT Diameter2.0 (1.8-2.4cm)Doppler AVA1.54cm2 Pulmonic Valve V21.02m/s Tricuspid Valve TR Velocity2.54m/s [id number] Other Information Technically limited study due to PTS BREATHING Conclusion Left ventricle: Mild concentric hypertrophy with more prominent/sigmoid septum was observed. Mild d iffuse hypokinesis with paradoxical septal motion was observed. LVEF was 45-50%. Abnormal relaxatio n of left ventricular diastolic function was observed. Right ventricle was mildly dilated with normal systolic function. Left atrium was mildly dilated. R ight atrium was normal-sized. Bioprosthetic valve in aortic position was observed. It was not well visualized. There was no steno sis/mismatch. There was trace insufficiency. There was mild mitral and tricuspid regurgitation. Pu lmonary valve was not well visualized. Right ventricular systolic pressure was assessed at44 mm Hg. There was no pericardial effusion.
[2024-10-31 21:51] LABS: Urine Protein, UAD Negative (Negative)
[2024-11-01] VITALS (9 sets, daily range): BP systolic 149–192; BP diastolic 66–84; PULSE 55–77; RESP 16–18; TEMP 96.8–98.4; O2SAT 93–96
--- NOTE | 2024-11-01 09:38 | DVHPN2 ---
Reviewed: Care Plan, H&P, Labs, Medications, Previous Orders, Radiology Changes from previous H/P or p: No Changes Objective Vitals Vital Signs Date Time Temp Pulse Resp B/P (MAP) Pulse Ox O2 Delivery O2 Flow Rate FiO2 11/01/24 08:59 97.7 59 17 153/66 (95) 94 97.7 10/31/24 20:00 Room Air* 0 21 Intake/Output Intake and Output 11/01/24 07:00 Intake Total 1142 ml Balance 1142 ml Intake Oral 1140 ml Tube Feeding 2 ml # Voids 5 Medications Current Medications Medications Dose Ordered Sig/Reji Route Start Time Stop Time Status Last Admin Dose Admin Apixaban 2.5 mg BID PO 10/31/24 10:00 10/31/24 22:01 2.5 MG Atorvastatin Calcium 20 mg DAILY PO 10/31/24 10:00 10/31/24 10:23 20 MG Metoprolol Tartrate 25 mg BID PO 10/31/24 10:00 10/31/24 22:01 25 MG Furosemide 20 mg BIDD PO 10/31/24 06:00 Pantoprazole Sodium 40 mg DAILY@0600 PO 10/31/24 06:00 11/01/24 06:13 40 MG Sodium Chloride 10 ml Q8HR IV 10/31/24 06:00 11/01/24 06:13 10 ML Morphine Sulfate 2 mg Q30M PRN IV 10/30/24 23:15 Nitroglycerin 0.4 mg Q5MINP PRN SL 10/30/24 23:15 Hydralazine HCl 10 mg Q6HP PRN IV 10/31/24 04:00 Aspirin 81 mg DAILY PO 10/31/24 10:00 10/31/24 10:22 81 MG Laboratory Results Laboratory Tests 10/31/24 06:18 Urinalysis Test 10/30/24 21:42 Urine Color Light-yellow (Yellow) Urine Clarity Clear (Clear) Urine pH 5.5 (5.0-9.0) Urine Specific [place] 1.015 (1.001-1.035) Urine Protein Negative (Negative) Urine Ketones Negative (Negative) Urine Blood Negative /uL (Negative) Urine Nitrite Negative (Negative) Urine Bilirubin Negative (Negative) Urine Urobilinogen Normal mg/dL (Negative) Urine Leukocyte Esterase Trace /uL (Negative) Urine RBC 1 /hpf (0 - 4) Urine Microscopic WBC 2 /HPF (0-5) Urine Squamous Epithelial Cells Few /hpf (<5) Urine Bacteria Few /hpf (None Seen) H Urine Mucus Few (None Seen) Urine Glucose Normal mg/dL (Normal) Labs and/or images reviewed: Labs reviewed by me, Image(s) reviewed by me Assessment/Plan Assessment/Plan Acute on chronic respiratory failure secondary to congestive heart failure Acute exacerbation of chronic systolic versus diastolic congestive heart failure, cardiology consult by Dr. Antonio appreciated echo 45 % ejection fraction, no further cardiac work up Possible community-acquired pneumonia Severe aortic stenosis status post TAVR History of coronary artery disease status post stents Non ST-elevation [place] type 2 due to demand ischemia AFib: Eliquis Hypercholesterolemia Hypertension History of bowel ischemia status post superior mesenteric artery angioplasty with a stent Time spent 50 minutes Advanced care planning time 20 minutes Patient is full code Plan discussed with: Patient Date of Service: Nov 01, 2024 Billing Provider: HIWOT AVERY MD Common Visit Codes: [id number] INP/OBS CARE(HIGH) HIWOT AVERY MD Nov 01, 2024 09:38
--- NOTE | 2024-11-01 09:42 | DVHDS2 ---
Discharge Summary Date of Admission Oct 30, 2024 at 23:08 Date of Discharge: Nov 01, 2024 Admitting Diagnosis Chest pain Wounds: None Labs/Diagnostic Data: Laboratory Results Test 10/31/24 06:18 10/31/24 02:40 10/31/24 01:37 10/30/24 21:42 White Blood Count 7.9 10^3/uL (4.4-10.8) Red Blood Count 4.83 10^6/uL (4.0-5.20) Hemoglobin 12.9 g/dL (12.2-16.2) Hematocrit 39.9 % (36.0-46.0) Mean Corpuscular Volume 82.6 fL (80.0-100.0) Mean Corpuscular Hemoglobin 26.7 pg (28.0-32.0) Mean Corpuscular Hemoglobin Concent 32.3 g/dL (32.0-36.0) Red Cell Distribution Width 15.5 % (11.8-14.3) Platelet Count 183 10^3/uL (140-450) Mean Platelet Volume 9.5 fL (6.9-10.8) Neutrophils (%) (Auto) 57.1 % (37.0-80.0) Lymphocytes (%) (Auto) 36.4 % (10.0-50.0) Monocytes (%) (Auto) 6.3 % (0.0-12.0) Eosinophils (%) (Auto) 0.0 % (0.0-7.0) Basophils (%) (Auto) 0.2 % (0.0-2.0) Neutrophils # (Auto) 4.5 10 ^3/uL (1.6-8.6) Lymphocytes # (Auto) 2.9 10 ^3/uL (0.4-5.4) Monocytes # (Auto) 0.5 10 ^3/uL (0-1.3) Eosinophils # (Auto) 0 10 ^3/uL (0-0.8) Basophils # (Auto) 0 10 ^3/uL (0-0.2) Nucleated Red Blood Cells 0.0 % Sodium Level 145 mmol/L (136-145) Potassium Level 3.5 mmol/L (3.5-5.1) Chloride Level 105 mmol/L (98-107) Carbon Dioxide Level 29 mmol/L (20-31) Anion Gap 11 (5-15) Blood Urea Nitrogen 13 mg/dL (9-23) Creatinine 0.85 mg/dL (0.550-1.02) Glomerular Filtration Rate Calc 67 mL/min (>90) BUN/Creatinine Ratio 15.3 (10.0-20.0) Serum Glucose 102 mg/dL (74-106) Calcium Level 9.8 mg/dL (8.7-10.4) Total Bilirubin 0.3 mg/dL (0.2-1.0) Aspartate Amino Transferase (AST) 18 U/L (13-40) Alanine Aminotransferase (ALT) 10 U/L (7-40) Alkaline Phosphatase 91 U/L (46-116) Troponin I High Sensitivity 109 ng/L (</=34) Total Protein 7.2 g/dL (5.7-8.2) Albumin 4.1 g/dL (3.2-4.8) Magnesium Level 1.8 mg/dL (1.6-2.6) B-Type Natriuretic Peptide 94.81 pg/mL (0-100) Vitamin D 25-Hydroxy 33.2 ng/mL (30.0-100) Thyroid Stimulating Hormone (TSH) 3.22 uIU/mL (0.55-4.78) Urine Color Light-yellow (Yellow) Urine Clarity Clear (Clear) Urine pH 5.5 (5.0-9.0) Urine Specific [place] 1.015 (1.001-1.035) Urine Protein Negative (Negative) Urine Ketones Negative (Negative) Urine Blood Negative /uL (Negative) Urine Nitrite Negative (Negative) Urine Bilirubin Negative (Negative) Urine Urobilinogen Normal mg/dL (Negative) Urine Leukocyte Esterase Trace /uL (Negative) Urine RBC 1 /hpf (0 - 4) Urine Microscopic WBC 2 /HPF (0-5) Urine Squamous Epithelial Cells Few /hpf (<5) Urine Bacteria Few /hpf (None Seen) Urine Mucus Few (None Seen) Urine Glucose Normal mg/dL (Normal) Other Laboratory Tests 10/31/24 06:18 Brief Hx & Hospital Course: 84-year-old female with a history of AFib on Eliquis hypertension hypercholesterolemia history of bowel ischemia status post superior mesenteric artery angioplasty with a stenting history of coronary artery disease status post stents history of TAVR for aortic stenosis came in complaining of shortness of breath and chest pain. Troponin negative. Seen by kelp gatherer Dr. Antonio echo 45 percent ejection fraction. Chest x-ray negative possible community- acquired pneumonia clinically treated with Rocephin. Patient feels better on room air and wants to go home. Per Cardiology no further cardiac workup discharged home. She will continue all her home medications follow up with the primary Dr Consults/Reason for consult District Associate Judge Dr. Antonio Operations or Procedures Echocardiogram Condition at Discharge: Fair Final Diagnosis/Problems List Acute on chronic respiratory failure secondary to congestive heart failure Acute exacerbation of chronic systolic versus diastolic congestive heart failure, cardiology consult by Dr. Antonio appreciated echo 45 % ejection fraction Possible community-acquired pneumonia Severe aortic stenosis status post TAVR History of coronary artery disease status post stents Non ST-elevation [place] type 2 due to demand ischemia AFib: Eliquis Hypercholesterolemia Hypertension History of bowel ischemia status post superior mesenteric artery angioplasty with a stent Discharge Disposition: Home Discharge Instruct/Medications Diet: Cardiac 2g Na,low cholest Activity: Light activity Follow Up/Referral: Resume all previous home medications Follow up with the primary doc Dr Pride Medications: None Scheduled Apixaban Base (Eliquis), 2.5 MG PO BID Atorvastatin Calcium (Atorvastatin Calcium), 1 TAB PO DAILY, (Reported) Furosemide (Lasix), 2 TAB PO DAILY Metoprolol Tartrate (Metoprolol Tartrate), 25 MG PO BID, (Reported) Potassium Chloride (Klor-Con M20), 20 MEQ PO DAILY Scheduled PRN Acetaminophen (Acetaminophen), 650 MG PO Q6HPRN PRN Discharge Statement: "Patient was advised to return to the ER or call 911 if any headaches, dizziness, shortness of breath, chest pain, abdominal pain, bleeding, fevers, or worsening of medical condition. Patient was counseled about treatment plan, medications, possible side effects, patientverbalized understanding. All questions were answered to the best of my ability. This discharge took greater then 30 minutes in planning, reviewing documentation, counseling the patient, and discussing with other team members." ASSESSMENT ASSESSMENT Hospital Course Uneventful Assessment Acute on chronic respiratory failure secondary to congestive heart failure Acute exacerbation of chronic systolic versus diastolic congestive heart failure, cardiology consult by Dr. Antonio appreciated echo 45 % ejection fraction Possible community-acquired pneumonia Severe aortic stenosis status post TAVR History of coronary artery disease status post stents Non ST-elevation [place] type 2 due to demand ischemia AFib: Eliquis Hypercholesterolemia Hypertension History of bowel ischemia status post superior mesenteric artery angioplasty with a stent Date of Service: Nov 01, 2024 Billing Provider: HIWOT AVERY MD Common Visit Codes: [id number] DISCH DAY >30min HIWOT AVERY MD Nov 01, 2024 09:42
--- NOTE | 2024-11-01 11:50 | DVHPN2 ---
Consult Progress Note Subjective Patient reports: Feels better Objective vital signs Vital Sign Date Time Temp Pulse Resp B/P (MAP) Pulse Ox O2 Delivery O2 Flow Rate FiO2 11/01/24 11:33 63 162/74 11/01/24 08:59 97.7 17 94 97.7 11/01/24 08:15 Room Air* 0 21 Total Intake and Output 10/31/24 10/31/24 11/01/24 15:00 23:00 07:00 Intake Total 900 ml 242 ml Balance 900 ml 242 ml medications Current Medications Medications Dose Ordered Sig/Reji Route Start Time Stop Time Status Last Admin Dose Admin Apixaban 2.5 mg BID PO 10/31/24 10:00 11/01/24 11:27 2.5 MG Atorvastatin Calcium 20 mg DAILY PO 10/31/24 10:00 11/01/24 11:33 20 MG Metoprolol Tartrate 25 mg BID PO 10/31/24 10:00 11/01/24 11:33 25 MG Furosemide 20 mg BIDD PO 10/31/24 06:00 Pantoprazole Sodium 40 mg DAILY@0600 PO 10/31/24 06:00 11/01/24 06:13 40 MG Sodium Chloride 10 ml Q8HR IV 10/31/24 06:00 11/01/24 06:13 10 ML Morphine Sulfate 2 mg Q30M PRN IV 10/30/24 23:15 Nitroglycerin 0.4 mg Q5MINP PRN SL 10/30/24 23:15 Hydralazine HCl 10 mg Q6HP PRN IV 10/31/24 04:00 Aspirin 81 mg DAILY PO 10/31/24 10:00 11/01/24 11:27 81 MG Examination: CVS:Normal (Telemetry reviewed consistent with sinus rhythm at 72 beats per minute, minimal PVCs on overnight review) laboratory and microbiology Laboratory Tests 10/31/24 06:18 Test 10/31/24 06:18 Range/Units Serum Glucose 102 74-106 mg/dL Problem List/Assessment/Plan Problem List/Assessment/Plan Assessment * Mildly Elevated Troponin - Denies CP. Likely demand ischemia in setting of uncontrolled HTn. Continue on aspirin and statin. Previous coronary angiogram in 2019 showing no significant CAD. ECHO with EF 45-50% * Uncontrolled HTN - continue on metoprolol 25 mg po twice daily. BP better controlled, amlodipine 5 mg daily added. titrate as tolerated. * Chronic Diastolic HF - CXR negative for congestion. BNP negative. Breathing stable on RA now that BP controlled. Continue home dose lasix. * Hx Aortic Stenosis S/P TAVR 2019 - mild diffuse hypokinesis, with paradoxical septal motion observed, EF 45-50%. Bioprosthetic valve stable, no stenosis/mismatch. * Paroxysmal Atrial Fibrillation - Currently Sinus Rhythm. Continue tele monitoring. On metoprolol 25 mg po twice daily. On low dose eliquis 2.5 mg twice daily for stroke prophylaxis. * Hx Mild Non obstructive CAD - On eliquis and statin. * Bigeminy - continue metoprolol. Patient will benefit from outpatient follow up for event monitoring. Case Discussed with Dr Antonio. BP better controlled titrate meds as tolerated. EF 45-50%. Continue home dose diuretics. Continue tele monitoring. Recommend outpatient follow up for continued monitoring. This medical document was created using an electronic medical record system with voice recognition software and computerized dictation system. Although this document has been carefully reviewed, there might still be some phonetic and typographical errors. Occasional wrong-word or ``sound-alike substitutions may have occurred due to the inherent limitations of voice recognition software. These areas are purely typographical due to imperfections of the software programs and do not reflect any compromise in the patient's medical care. Please read the chart carefully and recognize, using context, where these substitutions have occurred. Thank you for allowing me to participate in the management of this patient. The treatment plan was discussed with and agreed upon by patient/family including requesting consultants and ordering of imaging/procedures. Plan discussed with: Patient Date of Service: Nov 01, 2024 Billing Provider: LIZZIE GONSALEZ Common Visit Codes: [id number] INP/OBS CARE(HIGH) LIZZIE GONSALEZ Nov 01, 2024 11:49
--- NOTE | 2024-11-02 16:11 | ECG ---
[facility] Test Date: 2024-10-30 Test Time: 17:35:32 Pat Name: STEPH ARSHAD Department: ER Room: 0217T B Gender: F [employer] Superintendent: SHELLI : 1940 Requested By: EMILIANA PALENCIA Order Number: [id number] Reading MD: Amaury Grimm Measurements Intervals [place] Rate: 70 P: 65 LA: 164 QRS: -9 QRSD: 168 T: 136 QT: 507 QTc: 548 Interpretive Statements Sinus rhythm Ventricular bigeminy Left bundle branch block Electronically Signed On 11-02-2024 18:44:12 PDT by Amaury Grimm Please click the below link to view image of tracing.
== END 2024-11-01 17:55 | disposition home or self-care (01) | DRG 280 ==
LOC: ER 16:54 → OVERFLOW 23:08 → TELE-CENTR 23:10
PROVIDERS: ADMIT Internal Medicine; ATTEND Internal Medicine
DX: I11.0 Hypertensive heart disease with heart failure (principal); I50.43 Acute on chronic combined systolic (congestive) and diastolic (congestive) heart failure; I21.A1 Myocardial infarction type 2; J18.9 Pneumonia, unspecified organism; J96.20 Acute and chronic respiratory failure, unspecified whether with hypoxia or hypercapnia; I25.10 Atherosclerotic heart disease of native coronary artery without angina pectoris; I35.0 Nonrheumatic aortic (valve) stenosis; E78.00 Pure hypercholesterolemia, unspecified; I48.0 Paroxysmal atrial fibrillation; R00.8 Other abnormalities of heart beat; I44.7 Left bundle-branch block, unspecified; Z95.2 Presence of prosthetic heart valve; Z79.899 Other long term (current) drug therapy; Z79.01 Long term (current) use of anticoagulants; Z87.891 Personal history of nicotine dependence; Z98.51 Tubal ligation status; Z95.5 Presence of coronary angioplasty implant and graft; Z80.1 Family history of malignant neoplasm of trachea, bronchus and lung; Z90.49 Acquired absence of other specified parts of digestive tract
CPT/HCPCS: 36415; 80053; 81001; 82306; 82607; 82746; 83735; 83880; 84443; 84484; 85025; 93005; 93306; 96365; G0378